=== PATIENT | female | born 2000 | race Caucasian/White ===

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

== ENCOUNTER 2018-01-10 17:26 | Emergency (ER) | payer OTHER ==
[2018-01-10 17:42] VITALS: BP 112/74; PULSE 67; TEMP 98.1; BMI 23.4
--- NOTE | 2018-01-10 17:46 | PDOC ---
History of Present Illness - General Chief Complaint: Revisit,Wound Recheck Stated Complaint: SCALP WOUND CHECK Time Seen by Provider: 01/10/18 17:28 - History of Present Illness Initial Comments: 01/10/18 17:41 17 yo F with h/o Crohn's on azathioprine, presenting with complaint of bald spot in her scalp. Pt states that last month, she suffered a cut in her scalp that subsequently became infected. Pt was evaluated here and started on abx, which she completed. She notes that the wound healed well, but today a large piece of scab fell off her scalp where the wound used to be. Underneath the scab was a bald patch, which prompted pt to come to ER for evaluation. Pt endorses mild pain at the site but denies generalized headaches. Denies F/C. Denies swelling/drainage. Past History - Past Medical History Allergies/Adverse Reactions: Allergies Allergy/AdvReac Type Severity Reaction Status Date / Time No Known Allergies Allergy Verified 01/10/18 17:38 Home Medications: Ambulatory Orders Azathioprine [Imuran] 100 mg PO DAILY 12/18/16 Anemia: Yes COPD: No GI Disorders: Yes (CROHN'S) - Immunization History Immunization Up to Date: Yes - Suicide/Smoking/Psychosocial Hx Smoking Status: No Smoking History: Never smoked Have you smoked in the past 12 months: No Number of Cigarettes Smoked Daily: 0 Hx Alcohol Use: No Drug/Substance Use Hx: No Substance Use Type: None Review of Systems - Review of Systems Comments:: 01/10/18 17:43 GENERAL/CONSTITUTIONAL: No fever or chills. No weakness. HEAD, EYES, EARS, NOSE AND THROAT: No change in vision. No ear pain or discharge. No sore throat. CARDIOVASCULAR: No chest pain, no shortness of breath, no loss of consciousness RESPIRATORY: No cough, wheezing, or hemoptysis. GASTROINTESTINAL: No nausea, vomiting, diarrhea or constipation. GENITOURINARY: No dysuria, frequency, or change in urination. MUSCULOSKELETAL: No joint or muscle swelling or pain. No neck or back pain. SKIN: + bald spot to scalp, No rash NEUROLOGIC: No vertigo, no change in strength/sensation. ENDOCRINE: No increased thirst. No abnormal weight change. HEMATOLOGIC/LYMPHATIC: No anemia, easy bleeding, or history of blood clots. ALLERGIC/IMMUNOLOGIC: No hives or skin allergy. *Physical Exam - Physical Exam Comments: 01/10/18 17:43 "GENERAL: Awake, alert, and fully oriented, in no acute distress. HEAD: No signs of trauma EYES: PERRLA, EOMI, sclera anicteric, conjunctiva clear ENT: Auricles normal inspection, hearing grossly normal, nares patent, oropharynx clear without exudates. Moist mucosa NECK: Nontender, no stepoffs, Normal ROM, supple, no lymphadenopathy, JVD, or masses LUNGS: Breath sounds equal, clear to auscultation bilaterally. No wheezes, and no crackles HEART: Regular rate and rhythm, normal S1 and S2, no murmurs, rubs or gallops ABDOMEN: Soft, nontender, normoactive bowel sounds. No guarding, no rebound. No masses EXTREMITIES: Normal range of motion, no edema. No clubbing or cyanosis. No cords, erythema, or tenderness NEUROLOGICAL: Cranial nerves II through XII intact. 5/5 strength and sensation in all extremities, Normal speech, normal gait, normal cerebellar function SKIN: + 3cm bald patch on occiput, no erythema/induration/fluctuance, no sign of fungal infection Medical Decision Making - Medical Decision Making 01/10/18 17:44 17 yo F presenting to ED with bald patch on scalp. No sign of bacterial or fungal infection. Likely 2/2 recent injury. - Derm f/u Pt is well appearing, with normal vitals. Clinically stable for DC at this time. I discussed the physical exam findings, ancillary test results and final diagnoses with the patient. I answered all of the patient's questions. The patient was satisfied with the care received and felt comfortable with the discharge plan and treatment plan. The patient agrees to follow up with the primary care physician within 24-72 hours. *DC/Admit/Observation/Transfer Diagnosis at time of Disposition: Alopecia - Discharge Dispostion Disposition: HOME Condition at time of disposition: Good - Referrals Referrals: Rahul Gonzales MD [Primary Care Provider] - Sinai Vega MD [Staff Physician] - - Patient Instructions Printed Discharge Instructions: DI Alopecia [place] Additional Instructions: Call the number provided to make an appointment with a rn referral to have your bald spot further evaluated. If you experience any redness, swelling, pain, or any other concerning symptoms , return to the ER immediately. - Post Discharge Activity - Attestations Physician Attestion: 01/10/18 17:47 I, Dr. Naseem Valderrama MD, attest that this document has been prepared under my direction and personally reviewed by me in its entirety. I further attest, that it accurately reflects all work, treatment, procedures and medical decision -making performed by me.
== END 2018-01-10 17:53 | disposition home or self-care (01) ==
LOC: FER 17:26
DX: L65.9 Nonscarring hair loss, unspecified (principal); K50.90 Crohn's disease, unspecified, without complications; D64.9 Anemia, unspecified
CPT/HCPCS: 99281-25

== ENCOUNTER 2018-03-14 09:28 | Emergency (ER) | payer OTHER ==
[2018-03-14 09:43] VITALS: BP 112/70; PULSE 104; TEMP 98.4; BMI 23.4
[2018-03-14] MEDS ORDERED: ONDANSETRON *ODT* 4 MG TABLET SL ONE (10:25)
[2018-03-14] MEDS ORDERED: ONDANSETRON *ODT* 4 MG TABLET ONE (10:27)
--- NOTE | 2018-03-14 10:32 | PDOC ---
History of Present Illness - General Chief Complaint: Nausea/Vomiting Stated Complaint: NAUSEA/VOMITING Time Seen by Provider: 03/14/18 10:19 History Source: Patient Exam Limitations: No Limitations - History of Present Illness Initial Comments: 03/14/18 11:03 17 yr female with c/o nausea and vomiting last 2 days , no vomit today had diarrhea no fever. pt states last loose stool yesterday. PT has history of Past History - Past Medical History Allergies/Adverse Reactions: Allergies Allergy/AdvReac Type Severity Reaction Status Date / Time No Known Allergies Allergy Verified 03/14/18 09:41 Home Medications: Ambulatory Orders Ondansetron [Zofran Odt -] 4 mg SL TID PRN #21 od.tablet 03/14/18 Anemia: Yes COPD: No GI Disorders: Yes (CROHN'S) - Immunization History Immunization Up to Date: Yes - Suicide/Smoking/Psychosocial Hx Smoking Status: No Smoking History: Never smoked Have you smoked in the past 12 months: No Number of Cigarettes Smoked Daily: 0 Hx Alcohol Use: No Drug/Substance Use Hx: No Substance Use Type: None *Physical Exam - Vital Signs Last Vital Signs Temp Pulse Resp BP Pulse Ox 98.4 F 104 H 16 112/70 96 03/14/18 09:41 03/14/18 09:41 03/14/18 09:41 03/14/18 09:41 03/14/18 09:41 - Physical Exam General Appearance: Yes: Nourished, Appropriately Dressed HEENT: positive: EOMI, KRIS Neck: positive: Supple. negative: Tender Respiratory/Chest: positive: Lungs Clear, Normal Breath Sounds Cardiovascular: positive: Regular Rhythm, Regular Rate Gastrointestinal/Abdominal: positive: Normal Bowel Sounds, Soft, Increased Bowel Sounds. negative: Tender Rectal Exam: positive: deferred Musculoskeletal: positive: Normal Inspection Extremity: positive: Normal Capillary Refill, Normal Inspection, Normal Range of Motion Integumentary: positive: Normal Color, Dry, Warm Neurologic: positive: Fully Oriented, Alert, Normal Mood/Affect, Normal Response , Motor Strength 5/5 Moderate Sedation - Procedure Monitoring Vital Signs: Procedure Monitoring Vital Signs Temperature 98.4 F 03/14/18 09:41 Pulse Rate 104 H 03/14/18 09:41 Respiratory Rate 16 03/14/18 09:41 Blood Pressure 112/70 03/14/18 09:41 O2 Sat by Pulse Oximetry (%) 96 03/14/18 09:41 ED Treatment Course - Medications Given in the ED: ED Medications Discontinued Medications Generic Name Dose Route Start Last Admin Trade Name Darrin PRN Reason Stop Dose Admin Ondansetron HCl 4 mg 03/14/18 10:25 03/14/18 10:27 Zofran Odt - SL 03/14/18 10:26 4 mg ONCE ONE Administration Medical Decision Making - Medical Decision Making 03/14/18 11:22 cc: new years day started with nausea vomiting after drinking champagne the night before pt had diarrhea, last stool yesterday pt presents to ER missed work today due to continuing to feel nausea no vomiting today will check urine UA zofran for nausea *DC/Admit/Observation/Transfer Diagnosis at time of Disposition: Gastroenteritis - Discharge Dispostion Disposition: HOME Condition at time of disposition: Good - Prescriptions Prescriptions: Ondansetron [Zofran Odt -] 4 mg SL TID PRN #21 od.tablet PRN Reason: Nausea And/Or Vomiting - Referrals Referrals: Rahul Gonzales MD [Primary Care Provider] - - Patient Instructions Printed Discharge Instructions: DI for Nausea -- Adult Additional Instructions: small sips of clear fluids ice pops, jello , gatorade gingerale as you can tolerate the fluids take small bites of dry cereal, dry crackers dry toast take zofran for nausea or vomiting as directed follow with your doctor if any worsening symptoms return to ER for any fever, bloody diarrhea, unable to tolerate fluids - Post Discharge Activity Forms/Work/School Notes: Back to Work
[2018-03-14 10:51] LABS: HCG,QUALITATIVE URINE Negative
[2018-03-14 10:59] LABS: URINE APPEARANCE CLEAR; URINE BILIRUBIN NEGATIVE (<2.0 mg/dL); URINE COLOR YELLOW; URINE GLUCOSE (UA) NEGATIVE (NEGATIVE); URINE KETONE NEGATIVE (NEGATIVE); URINE LEUK ESTERASE 1+ (NEGATIVE); URINE NITRITE NEGATIVE (NEGATIVE); URINE PROTEIN 1+ (NEGATIVE); URINE UROBILINOGEN NEGATIVE mg/dL (0.2-1.0)
[2018-03-14 11:01] LABS: EPI CELLS RARE /HPF (FEW); URINE MUCUS FEW
== END 2018-03-14 11:30 | disposition home or self-care (01) ==
LOC: JERFT 09:28
DX: K52.9 Noninfective gastroenteritis and colitis, unspecified (principal)
CPT/HCPCS: 81003; 81015; 84703; 87086; 87186; 99281-25; Q0162

== ENCOUNTER 2018-05-22 17:43 | Emergency (ER) | payer SELFPAY ==
--- NOTE | 2018-05-22 17:48 | PDOC ---
Attending Attestation - HPI HPI: 05/22/18 18:16 Patient is a 17 year old female with significant past medical history of Crohn' s (on a biologic), who presents to the ED with, 3-4 days of a sore throat. Patient describes her pain as bilateral worsening with swallowing. 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 NKDA - Physicial Exam PE: 05/22/18 18:39 GENERAL: Well developed, well nourished. Awake and alert. No acute distress. HEENT: +Nasal congestion. Mildly injected throat. Normocephalic, atraumatic. PERRLA, EOMI. No conjunctival pallor. Sclera are non-icteric. NECK: +Shotty cervical lymphadenopathy. Supple. Full ROM. No JVD. Carotid pulses 2+ and symmetric, without bruits. No thyromegaly. CARDIOVASCULAR: Regular rate and rhythm. No murmurs, rubs, or gallops. Distal pulses are 2+ and symmetric. PULMONARY: No evidence of respiratory distress. Lungs clear to auscultation bilaterally. No wheezing, rales or rhonchi. ABDOMINAL: Soft. Non-tender. Non-distended. No rebound or guarding. No organomegaly. Normoactive bowel sounds. MUSCULOSKELETAL Normal range of motion at all joints. No bony deformities or tenderness. No CVA tenderness. EXTREMITIES: No cyanosis. No clubbing. No edema. No calf tenderness. SKIN: Warm and dry. Normal capillary refill. No rashes. No jaundice. NEUROLOGICAL: Alert, awake, appropriate. Cranial nerves 2-12 intact. No deficits to light touch and temperature in face, upper extremities and lower extremities. No motor deficits in the in face, upper extremities and lower extremities. Normoreflexic in the upper and lower extremities. Normal speech. Toes are down- going bilaterally. Gait is normal without ataxia. PSYCHIATRIC: Cooperative. Good eye contact. Appropriate mood and affect. <Tulio Carrasquillo - Last Filed: 05/22/18 18:37> - Resident Resident Name: Kalia Rich - ED Attending Attestation I have performed the following: I have examined & evaluated the patient, The case was reviewed & discussed with the resident, I agree w/resident's findings & plan, Exceptions are as noted - Medical Decision Making 05/22/18 18:44 Assessment: Mild viral URI, rule out strep Plan: Throat culture and further medical management, antibiotics if positive, symptomatic treatment if negative. Patient is without fever or other systemic manifestations of significant infection. She is on azathioprine for her ulcerative colitis but no biologics past or present. <Tod Schaffer - Last Filed: 05/22/18 18:45> Attestations - Attestations 05/22/18 18:23 Documentation prepared by Tulio Carrasquillo, acting as expert medical writer for Tod Bonner MD. <Tulio Carrasquillo - Last Filed: 05/22/18 18:37>
[2018-05-22 17:52] VITALS: BP 116/79; PULSE 73; TEMP 97.9; BMI 23.4
--- NOTE | 2018-05-22 17:52 | PDOC ---
History of Present Illness - General Chief Complaint: Sore Throat Stated Complaint: SORE THROAT Time Seen by Provider: 05/22/18 17:47 History Source: Patient, Parent(s) (Father present at bedside), Old Records Exam Limitations: No Limitations - History of Present Illness Initial Comments: HPI: 17 y/o female presenting to ER complaining of 3-4 days of sore throat, cough , and nasal congestion. Pt states the pain was initially on the right side of her throat and is now bilaterally. Pain is worse with swallowing. Endorses possible right ear pain. Has trialed PO Tylenol with some relief. Denies fevers , sweats, or body aches. Did not seek care at per PCP. 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 No recent change in the dose. Past History - Past Medical History Allergies/Adverse Reactions: Allergies Allergy/AdvReac Type Severity Reaction Status Date / Time No Known Allergies Allergy Verified 05/22/18 17:45 Home Medications: Ambulatory Orders Azathioprine [Azasan] 75 mg PO DAILY 05/22/18 Anemia: Yes COPD: No GI Disorders: Yes (CROHN'S) - Immunization History Immunization Up to Date: Yes - Suicide/Smoking/Psychosocial Hx Smoking Status: No Smoking History: Never smoked Have you smoked in the past 12 months: No Number of Cigarettes Smoked Daily: 0 Information on smoking cessation initiated: No Hx Alcohol Use: No Drug/Substance Use Hx: No Substance Use Type: None Review of Systems - Review of Systems Able to Perform ROS?: Yes Comments:: In addition to that documented in the HPI above, the additional ROS was obtained : Constitutional: Denies fevers or chills Head: Denies vision changes ENMT: Per HPI CV: Denies chest pain Resp: Denies SOB GI: Denies vomiting or diarrhea : Denies painful urination MSK: Denies recent trauma Skin: Denies new rashes Neuro: Denies new numbness or tingling or weakness Endocrine: Denies polyuria Heme: Denies bleeding or bruising *Physical Exam - Vital Signs Last Vital Signs Temp Pulse Resp BP Pulse Ox 97.9 F 73 20 116/79 100 05/22/18 17:43 05/22/18 17:43 05/22/18 17:43 05/22/18 17:43 05/22/18 17:43 - Physical Exam Comments: Constitutional: Well-developed, well-nourished, non-toxic, very well appearing adult female in no acute distress or obvious discomfort. Found sitting upright on edge of hospital bed. Alert and oriented x4. Answered all questions appropriately and completely. Speech was non-labored, non-pressured. Head: Normocephalic. No obvious external signs of trauma. Eyes: Sclerae white. Ears: External auditory canals and tympanic membranes pearly hudson. Hearing grossly intact. Nose: No nasal discharge. Throat: Mild erythema to posterior oropharynx without tonsillar hypertrophy or exudate. Teeth and gingiva in good general condition. Neck: Supple, trachea is midline. Bilateral cervical lymphadenopathy. Cardiovascular / Chest: Regular rate and regular rhythm. No murmur, rubs, clicks, or gallops. Peripheral pulses: radial pulses full. Respiratory: Breathing unlabored. Equal chest rise and fall. Clear to auscultation bilaterally. No stridor, no wheezing, no rhonchi. Gastrointestinal: abdomen is soft, non-tender, non-distended. Neuro: Alert and oriented. Moving all four extremities spontaneously. Skin: Warm, dry, and intact. Psych: Affect: appropriate. Mood: normal. Moderate Sedation - Procedure Monitoring Vital Signs: Procedure Monitoring Vital Signs Temperature 97.9 F 05/22/18 17:43 Pulse Rate 73 05/22/18 17:43 Respiratory Rate 20 05/22/18 17:43 Blood Pressure 116/79 05/22/18 17:43 O2 Sat by Pulse Oximetry (%) 100 05/22/18 17:43 Medical Decision Making - Medical Decision Making Centor Score (Modified/McIsaac) for Strep Pharyngitis RESULT SUMMARY: 1 points 5% - 10% likelihood of strep No further testing nor antibiotics. INPUTS: Age > 0 = 15-44 years Exudate or swelling on tonsils > 0 = No Tender/swollen anterior cervical lymph nodes > 1 = Yes Temp >38C (100.4F) > 0 = No Cough > 0 = Cough present *Reviewed vital signs, nursing notes, and prior visit documentation (if available). 17 y/o female complaining of sore throat and viral URI type symptoms for the past 3-4 days. Afebrile. Vitals unremarkable for hypotension or tachycardia. Physical exam as described above. Very well appearing. Suspect likely viral URI versus viral pharyngitis. Low suspicion for strep throat or esophageal Crohn's flare. Will obtain rapid strep test. Rapid strep test negative. Throat culture pending. Will not prescribe antibiotics at this time. Call back request placed for throat culture. Provided referral for [facility] to establish primary care given pts multiple ED visits for low acuity complaints. *DC/Admit/Observation/Transfer Diagnosis at time of Disposition: Sore throat - Discharge Dispostion Disposition: HOME Condition at time of disposition: Good Decision to Admit order: No - Referrals Schedule a call back: Throat Culture Referrals: [facility] [place] [Provider Group] - Patient Instructions Printed Discharge Instructions: DI for Viral Pharyngitis Additional Instructions: Your rapid strep test was negative. A throat culture has been done; the results will be available in 48 hours. You will be contacted if the culture is positive for strep throat and an antibiotic will be phoned in for you. You can take over the counter Tylenol or Advil as needed for pain. Take as directed on the package insert. Do not exceed the recommended dosage. You may also gargle with salt water for the sore throat. Follow up with your primary care doctor within the next week. You will need to call to make an appointment. Go to the nearest emergency department if your condition worsens or you feel like you need additional emergency evaluation. Print Language: SOMALI - Post Discharge Activity
== END 2018-05-22 19:06 | disposition home or self-care (01) ==
LOC: FER 17:43
DX: J02.9 Acute pharyngitis, unspecified (principal)
CPT/HCPCS: 87070; 87880; 99282-25

== ENCOUNTER 2018-06-28 17:47 | Emergency (ER) | payer SELFPAY ==
[2018-06-28 18:09] VITALS: BP 104/73; PULSE 94; TEMP 98.5; BMI 23.4
--- NOTE | 2018-06-28 18:20 | PDOC ---
Documentation entered by Tulio Carrasquillo SCRIBE, acting as scribe for Alfred Sanches MD. Alfred Sanches MD: This documentation has been prepared by the Neida barfield Nirvannie, SCRIBE, under my direction and personally reviewed by me in its entirety. I confirm that the documentation accurately reflects all work, treatment, procedures, and medical decision making performed by me. History of Present Illness - General Chief Complaint: Urinary Problem Stated Complaint: UTI, STD CHECK, NECK & L KNEE INJURY Time Seen by Provider: 06/28/18 18:01 History Source: Patient Exam Limitations: No Limitations - History of Present Illness Initial Comments: 06/28/18 18:47 CC: Vaginal irritation, posterior neck and left knee pain HPI: The patient is a 17 year old female, with a significant past medical history of Crohns and frequent UTIs, who presents to the emergency department with, 10 days of vaginal irritation. As per patient, she used a new soap and subsequently began experiencing discomfort and vaginal irritation. Patient is sexually active with intermittent usage of protection. 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 She endorses mild right cervical paraspinal pain and left knee pain with abrasions, She denies any vaginal bleeding or abnormal vaginal discharge. She denies recent fevers, chills, headache or dizziness. She denies recent nausea, vomit, diarrhea or constipation. She denies recent dysuria, frequency, urgency or hematuria. She denies recent chest pain or shortness of breath. Allergies: NKA Past surgical history: None reported. Social history: Nonsmoker. Denies EtOH use and recreational drug use. Past History - Past Medical History Allergies/Adverse Reactions: Allergies Allergy/AdvReac Type Severity Reaction Status Date / Time No Known Allergies Allergy Verified 06/28/18 18:00 Home Medications: Ambulatory Orders Azathioprine [Azasan] 75 mg PO DAILY 05/22/18 Anemia: Yes COPD: No GI Disorders: Yes (CROHN'S) - Reproductive History Is Patient Now?: No - Immunization History Immunization Up to Date: Yes - Suicide/Smoking/Psychosocial Hx Smoking Status: No Smoking History: Never smoked Have you smoked in the past 12 months: No Number of Cigarettes Smoked Daily: 0 Hx Alcohol Use: No Drug/Substance Use Hx: No Substance Use Type: None Review of Systems - Review of Systems Able to Perform ROS?: Yes Comments:: 06/28/18 18:47 ROS: A complete review of 10 out of 10 review of systems is taken and is negative apart from what is previously mentioned below and in the HPI. *Physical Exam - Vital Signs Last Vital Signs Temp Pulse Resp BP Pulse Ox 98.5 F 94 H 16 104/73 98 06/28/18 17:48 06/28/18 17:48 06/28/18 17:48 06/28/18 17:48 06/28/18 17:48 - Physical Exam Comments: 06/28/18 18:47 Exam: Vitals: Triage Vital signs reviewed General Appearance: no acute distress, well nourished well developed, Head: Atraumatic, normocephalic Neck: +Mild right paraspinal tenderness. Supple Abdomen: Soft, nondistended, normal bowel sounds, nontender to palpation Rectal: Exam deferred Pelvic: Thick cottage-cheese like discharge Extremities: +LLE: Mild tenderness to the left knee with small abrasion. Full range of motion to all extremities, no cyanosis, clubbing, or edema Skin: Warm and dry, no rashes or lesions, no petechiae Neuro: AOX3; Cranial Nerves 2-12 grossly intact, Strength intact to all extremities, Sensation intact to all extremities Psych: normal mood, normal affect Medical Decision Making - Medical Decision Making 06/28/18 18:48 17 year old female, with a significant past medical history of Crohns and frequent UTIs, who presents to the emergency department with, 10 days of vaginal irritation. Plan is to: Pelvic exam UA/UPREG GC/Chlamydia testing HIV testing Reassess Dispo 06/28/18 18:55 Patient presents ED with 2 complaints. Has history of Crohn's disease frequent UTIs is on immunosuppressive medication presents with ten-day history of vaginal irritation and itching Second complaint we'll pushing a cart cart tipped over resulting in minor muscular skeletal injury to right paraspinal neck and abrasion to left knee No indication for imaging patient able to ambulate comfortably no bony tenderness Patient also requesting HIV testing Pelvic examination notable for vaginal discharge consistent with heidi infection patient ordered for fluconazole and Monistat Final urinalysis and HIV pending Dr. Maegan Fuentes to follow-up results and dispo *DC/Admit/Observation/Transfer Diagnosis at time of Disposition: Dysuria - Discharge Dispostion Condition at time of disposition: Good - Referrals - Patient Instructions - Post Discharge Activity
[2018-06-28] MEDS ORDERED: FLUCONAZOLE 150 MG TABLET PO ONE ×2 (18:53→19:18)
[2018-06-28] MEDS ORDERED: MICONAZOLE NITRATE 2% VAGINAL CREAM 45 GM TUBE VG ONE (18:53)
[2018-06-28 19:04] LABS: EPITHELIAL CELLS FEW /hpf
--- NOTE | 2018-06-28 19:27 | PDOC ---
*Physical Exam - Vital Signs Last Vital Signs Temp Pulse Resp BP Pulse Ox 98.5 F 94 H 16 104/73 98 06/28/18 17:48 06/28/18 17:48 06/28/18 17:48 06/28/18 17:48 06/28/18 17:48 ED Treatment Course - ADDITIONAL ORDERS Additional order review: Laboratory Results 06/28/18 06/28/18 18:30 18:30 Urine Color Yellow Urine Appearance Clear Urine pH 7.0 Urine Protein 1+ H Urine Glucose (UA) Negative Urine Ketones Trace Urine Blood Trace-lysed Urine Nitrite Negative Urine Bilirubin Negative Urine Urobilinogen 0.2 Ur Leukocyte Esterase 3+ Urine RBC 0-2 Urine WBC 5-10 Ur Transition Epith Cell Few Urine Bacteria Few Urine HCG, Qual Negative - Medications Given in the ED: ED Medications Discontinued Medications Generic Name Dose Route Start Last Admin Trade Name Freq PRN Reason Stop Dose Admin Fluconazole 150 mg 06/28/18 18:53 06/28/18 19:20 Fluconazole PO 06/28/18 18:54 150 mg ONCE ONE Administration Miconazole Nitrate 1 applic 06/28/18 18:53 06/28/18 19:22 Monistat-7 Vaginal Cream - VG 06/28/18 18:54 Not Given ONCE ONE Progress Note - Progress Note Progress Note: Care of this patient was transferred to me from Dr. Sanches at 1900 hrs. Patient is a 17-year-old female with vaginal itching and discharge. Patient's pelvic exam was consistent with a yeast infection. Patient given fluconazole here and I will send a prescription for Monistat to her pharmacy times one dose only Patient had HIV testing which is not back patient will be called if result is negative otherwise patient is aware she may need to come back into the ED to receive a positive test result *DC/Admit/Observation/Transfer Diagnosis at time of Disposition: Dysuria, Vaginal yeast infection - Discharge Dispostion Disposition: HOME Condition at time of disposition: Good Decision to Admit order: No - Referrals - Patient Instructions Additional Instructions: You were given a pill here for a vaginal yeast infection, I also sent a prescription to your pharmacy for a one-time dose of Monistat get the prescription filled and take as directed vaginally. We will call you with the result of your H ITT test if the test is anything but negative E will be requested to come back to the ED to obtain the results. Return to the emergency department immediately with ANY new, persistent or worsening symptoms. Continue any medications as previously prescribed by your physician. You should follow up with your primary doctor as soon as possible regarding today's emergency department visit. . Please make sure your doctor reviews the results of your emergency evaluation. Thank you for coming to the Emergency Department today for your care. It was a pleasure to see you today. Please note that your evaluation is INCOMPLETE until you follow-up with your doctor. - Post Discharge Activity
== END 2018-06-28 19:30 | disposition home or self-care (01) ==
LOC: FER 17:47
CPT/HCPCS: 36415; 81003; 81015; 84703; 87086; 87389; 87491; 87591; 87661; 99283-25

== ENCOUNTER 2018-07-24 18:41 | Emergency (ER) | payer OTHER | END 2018-07-24 21:01 | disposition home or self-care (01) | LOC: JERFT 18:41 ==

== ENCOUNTER 2018-08-05 15:45 | Emergency (ER) | payer SELFPAY, OTHER | END 2018-08-05 16:46 | disposition home or self-care (01) | LOC: FER 15:45 ==

== ENCOUNTER 2018-08-11 17:58 | Emergency (ER) | payer OTHER ==
[2018-08-11 18:11] VITALS: BP 110/77; PULSE 70; TEMP 98.3; BMI 22.4
--- NOTE | 2018-08-11 18:41 | PDOC ---
Documentation entered by Rhys Moran SCRIBE, acting as scribe for Tod Schaffer MD. Tod Schaffer MD: This documentation has been prepared by the Luisa barfield Andrys, SCRIBE, under my direction and personally reviewed by me in its entirety. I confirm that the documentation accurately reflects all work, treatment, procedures, and medical decision making performed by me. Suture Removal/Wound Check HPI - History of Present Illness Chief Complaint: Suture/Staple Removal(Here) Stated Complaint: SUTURE REMOVAL History Source: Yes: Patient Exam Limitations: Yes: No Limitations - Onset of Previous Treatment Comment:: 08/11/18 18:25 2 cm laceration right lower leg, healed. No sign of infection. Clean and dry. Sutures removed. Bacitracin and Steri-Strips 2-3 more days. Follow-up when necessary. 08/11/18 18:29 The patient is a 17 year old female with a significant past medical history of Crohns disease who presents to the ED for suture removal. Patient was last seen in the ED on 08/05 for a right lower extremity laceration s/p injury. Patient received 5 sutures. Denies any other symptoms. Past History - Past Medical History Allergies/Adverse Reactions: Allergies Allergy/AdvReac Type Severity Reaction Status Date / Time No Known Allergies Allergy Verified 08/11/18 18:04 Home Medications: Ambulatory Orders Azathioprine [Azasan] 100 mg PO DAILY 05/22/18 Anemia: Yes COPD: No GI Disorders: Yes (CROHN'S) - Immunization History Immunization Up to Date: Yes - Suicide/Smoking/Psychosocial Hx Smoking Status: No Smoking History: Never smoked Have you smoked in the past 12 months: No Number of Cigarettes Smoked Daily: 0 Hx Alcohol Use: No Drug/Substance Use Hx: No Substance Use Type: None *Review of Systems - Review of Systems Able to Perform ROS?: Yes Comments:: 08/11/18 18:29 CONSTITUTIONAL: Absent: fever, no chills, no fatigue EYES: Absent: visual changes ENT: Absent: ear pain, no sore throat CARDIOVASCULAR: Absent: chest pain, no palpitations RESPIRATORY: Absent: cough, no SOB GI: Absent: abdominal pain, no nausea, no vomiting, no constipation, no diarrhea GENITOURINARY: Absent: dysuria, no frequency, no hematuria MUSKULOSKELETAL: Absent: back pain, no arthralgia, no myalgia SKIN: + sutures in place Absent: rash NEURO: Absent: headache All Other Systems: Reviewed and Negative *Physical Exam - Vital Signs Last Vital Signs Temp Pulse Resp BP Pulse Ox 98.3 F 70 15 110/77 96 08/11/18 17:59 08/11/18 17:59 08/11/18 17:59 08/11/18 17:59 08/11/18 17:59 - Physical Exam Comments: 08/11/18 18:29 GENERAL: Well-appearing, well-nourished. No apparent distress. HEENT: Normocephalic, atraumatic. PERRL, EOM intact. CARDIOVASCULAR: Normal S1, S2. Regular rate and rhythm. PULMONARY: Clear to auscultation bilaterally. ABDOMEN: Soft, non-distended, non-tender. EXTREMITIES: Normal ROM in all four extremities. No gross deformities. SKIN: + 2 cm laceration, clean and dry in the Right lower leg. Healed well, no sign of infection. Sutures removed, steri strips applied. Follow up if there is bleeding or sign of infection NEUROLOGICAL: No focal neurological deficits. *DC/Admit/Observation/Transfer Diagnosis at time of Disposition: Visit for suture removal - Discharge Dispostion Disposition: HOME Condition at time of disposition: Improved Decision to Admit order: No - Referrals Referrals: Rahul Gonzales MD [Primary Care Provider] - - Patient Instructions Printed Discharge Instructions: DI for Suture Removal - Post Discharge Activity
== END 2018-08-11 18:31 | disposition home or self-care (01) ==
LOC: FER 17:58
DX: Z48.02 Encounter for removal of sutures (principal)
CPT/HCPCS: 99281-25

== ENCOUNTER 2018-09-14 13:35 | Emergency (ER) | payer OTHER ==
[2018-09-14 13:52] VITALS: BP 108/71; PULSE 96; TEMP 98.5; BMI 22.2
--- NOTE | 2018-09-14 14:22 | PDOC ---
*Physical Exam - Vital Signs Last Vital Signs Temp Pulse Resp BP Pulse Ox 98.5 F 96 H 18 108/71 99 09/14/18 13:47 09/14/18 13:47 09/14/18 13:47 09/14/18 13:47 09/14/18 13:47 Medical Decision Making - Medical Decision Making 09/14/18 14:21 Pt seen by Midlevel Provider under my direct supervision Ancillary studies reviewed I agree with plan as outlined by Midlevel Provider 09/14/18 16:06 *DC/Admit/Observation/Transfer Diagnosis at time of Disposition: Vaginal discharge, Nausea - Discharge Dispostion Disposition: HOME Condition at time of disposition: Stable - Prescriptions Prescriptions: metroNIDAZOLE [Flagyl -] 500 mg PO DAILY #14 tablet Nitrofurantoin Monohyd/M-Cryst [Macrobid] 100 mg PO BID #14 capsule Ondansetron [Zofran Odt -] 4 mg SL TID PRN #21 od.tablet PRN Reason: Nausea - Referrals Schedule a call back: Call back Referrals: Rahul Gonzales MD [Primary Care Provider] - - Patient Instructions Printed Discharge Instructions: DI for Vaginal Discharge Additional Instructions: Take metronidazole as prescribed for suspected bacterial vaginosis and Macrobid as prescribed for UTI Use Zofran if needed for nausea Follow-up with your attending urologist as soon as possible for further evaluation of discharge Return here for abdominal pain, vomiting/inability to keep down fluids, fever, or any other concerning symptoms - Post Discharge Activity
--- NOTE | 2018-09-14 14:24 | PDOC ---
History of Present Illness - General Chief Complaint: Nausea/Vomiting Stated Complaint: NAUSEA/VOMITING Time Seen by Provider: 09/14/18 14:20 History Source: Patient Exam Limitations: No Limitations - History of Present Illness Initial Comments: 09/14/18 15:02 CHIEF COMPLAINT: Nausea HISTORY OF PRESENT ILLNESS: This is a 17-year-old female with a history of Crohn 's disease on azathioprine who presents complaining of 3 days of nausea with an episode of vomiting today. She also has 4-5 episodes of nonbloody diarrhea daily , although this is typical for her. She also reports 4 months of thick, white, non-malodorous vaginal discharge, which she reports has been treated twice with Diflucan without any improvement in symptoms. She denies abdominal pain, fevers/ chills, or any other symptoms. Patient is sexually active with male partners, but reports that she has not had sex for several months. Vital signs on arrival are notable for heart rate of 96. REVIEW OF SYSTEMS: GENERAL/CONSTITUTIONAL: No fever or chills. No weakness. No weight change. CARDIOVASCULAR: No chest pain or palpitations. RESPIRATORY: No cough, wheezing, or shortness of breath. GASTROINTESTINAL: Nausea/vomiting, chronic diarrhea. No abdominal pain. GENITOURINARY: 4 months of vaginal discharge. No dysuria, frequency, or change in urination. MUSCULOSKELETAL: No joint or muscle swelling or pain. No neck or back pain. SKIN: No rash or easy bruising. NEUROLOGIC: No headache, vertigo, loss of consciousness, or loss of sensation. PSYCHIATRIC: No depression or anxiety. ENDOCRINE: No increased thirst. No abnormal weight change. HEMATOLOGIC/LYMPHATIC: No anemia, easy bleeding, or history of blood clots. ALLERGIC/IMMUNOLOGIC: No hives or skin allergy. No latex allergy. PHYSICAL EXAM: GENERAL: The patient is awake, alert, and fully oriented, in no acute distress. HEAD: Normal with no signs of trauma. ENT: Pupils equal, round and reactive to light, extraocular movements intact, sclera anicteric, conjunctiva clear. Neck supple. LUNGS: Clear to auscultation bilaterally. Normal excursion. No respiratory distress or use of accessory muscles. CV: RRR, S1/S2, no MRG. Cap refill < 2 sec. ABDOMEN: Soft, non-distended, non-tender even to deep palpation. EXTREMITIES: Normal range of motion, no edema. NEUROLOGICAL: Normal speech, normal gait. CN II-XII grossly intact. PSYCH: Normal mood, normal affect. SKIN: Warm, dry, normal turgor, no rashes or lesions noted. CHIEF LIBRARIAN EXTENSION DEPARTMENT: Normal external exam. Thin grayish vaginal discharge. No CMT or adnexal tenderness. Past History - Past Medical History Allergies/Adverse Reactions: Allergies Allergy/AdvReac Type Severity Reaction Status Date / Time No Known Allergies Allergy Verified 09/14/18 13:52 Home Medications: Ambulatory Orders Azathioprine [Azasan] 100 mg PO DAILY 05/22/18 Nitrofurantoin Monohyd/M-Cryst [Macrobid] 100 mg PO BID #14 capsule 09/14/18 Ondansetron [Zofran Odt -] 4 mg SL TID PRN #21 od.tablet 09/14/18 metroNIDAZOLE [Flagyl -] 500 mg PO DAILY #14 tablet 09/14/18 Anemia: Yes COPD: No GI Disorders: Yes (CROHN'S) - Immunization History Immunization Up to Date: Yes - Suicide/Smoking/Psychosocial Hx Smoking Status: No Smoking History: Never smoked Have you smoked in the past 12 months: No Number of Cigarettes Smoked Daily: 0 Hx Alcohol Use: No Drug/Substance Use Hx: No Substance Use Type: None *Physical Exam - Vital Signs Last Vital Signs Temp Pulse Resp BP Pulse Ox 98.5 F 96 H 18 108/71 99 09/14/18 13:47 09/14/18 13:47 09/14/18 13:47 09/14/18 13:47 09/14/18 13:47 Medical Decision Making - Medical Decision Making 09/14/18 15:38 A/P: 17-year-old female with nausea/vomiting without abdominal tenderness on exam. Asymptomatic currently in declining antiemetics. Also with diarrhea that is chronic and unchanged. Reporting 4 months of vaginal discharge unresponsive to 2 rounds of antifungal treatment; no evidence of PID on exam. -Basic labs: CBC, CMP. -UA/urine culture -Gen. culture -Chlamydia/gonorrhea Suspect bacterial vaginosis; will treat with Flagyl. UA with 1+ leukoesterase; will treat with Macrobid. Patient states she is feeling fine and does not want to wait for lab results. Follow-up instructions and return precautions reviewed. *DC/Admit/Observation/Transfer Diagnosis at time of Disposition: Vaginal discharge, Nausea - Discharge Dispostion Disposition: HOME Condition at time of disposition: Stable Decision to Admit order: No - Prescriptions Prescriptions: metroNIDAZOLE [Flagyl -] 500 mg PO DAILY #14 tablet Nitrofurantoin Monohyd/M-Cryst [Macrobid] 100 mg PO BID #14 capsule Ondansetron [Zofran Odt -] 4 mg SL TID PRN #21 od.tablet PRN Reason: Nausea - Referrals Schedule a call back: Call back Referrals: Rahul Gonzales MD [Primary Care Provider] - - Patient Instructions Printed Discharge Instructions: DI for Vaginal Discharge Additional Instructions: Take metronidazole as prescribed for suspected bacterial vaginosis and Macrobid as prescribed for UTI Use Zofran if needed for nausea Follow-up with your assistant refinery operator as soon as possible for further evaluation of discharge Return here for abdominal pain, vomiting/inability to keep down fluids, fever, or any other concerning symptoms - Post Discharge Activity
[2018-09-14 15:16] LABS: EPI CELLS 4.7 /HPF (0-5/HPF); HYALINE CASTS 3 /lpf (0-8); URINE APPEARANCE CLEAR; URINE BACTERIA 177.2 /hpf (NEGATIVE); URINE BILIRUBIN NEGATIVE (NEGATIVE); URINE COLOR YELLOW; URINE GLUCOSE (UA) NEGATIVE (NEGATIVE); URINE KETONE NEGATIVE (NEGATIVE); URINE LEUK ESTERASE 1+ (NEGATIVE); URINE NITRITE NEGATIVE (NEGATIVE); URINE PROTEIN NEGATIVE (NEGATIVE); URINE RBC 2 /hpf (0-4); URINE UROBILINOGEN 0.2 mg/dL (0.2-1.0); URINE WBC 8 /hpf (0-5)
[2018-09-14 16:25] LABS: BASO % 0.3 % (0-2.0); EOS % 0.2 % (0-4.5); HEMATOCRIT 39.6 % (32.4-45.2); HEMOGLOBIN 13.2 GM/dL (10.7-15.3); LYMPH % 10.6 % (8-40); MCH 29.9 pg (25.7-33.7); MCHC 33.3 g/dl (32.0-36.0); MEAN CELL VOLUME 89.9 fl (80-96); MEAN PLT VOLUME 7.7 fl (7.5-11.1); MONO % 11.2 % (3.8-10.2); NEUT % 77.7 % (42.8-82.8); PLATELET COUNT 284 K/MM3 (134-434); RDW 15.5 % (11.6-15.6); WHITE BLOOD COUNT 7.2 K/mm3 (4.0-10.0)
[2018-09-14 16:50] LABS: ALBUMIN 4.1 g/dl (3.4-5.0); BILIRUBIN,TOTAL 1.1 mg/dL (0.2-1); BLOOD UREA NITROGEN 6.9 mg/dL (7-18); CREATININE 0.9 mg/dL (0.55-1.3); POTASSIUM 3.8 mmol/L (3.5-5.1); TOT PROT 7.8 g/dl (6.4-8.2)
== END 2018-09-14 16:00 | disposition home or self-care (01) ==
LOC: JER 13:35
DX: N39.0 Urinary tract infection, site not specified (principal); N76.0 Acute vaginitis; B96.89 Other specified bacterial agents as the cause of diseases classified elsewhere
CPT/HCPCS: 36415; 80053; 81003; 84703; 85025; 87070; 87077; 87086; 87205; 87389; 87491; 87591; 99281-25

== ENCOUNTER 2019-03-02 18:20 | Emergency (ER) | payer OTHER ==
--- NOTE | 2019-03-02 18:53 | PDOC ---
Documentation entered by Evangelina Chávez SCRIBE, acting as scribe for Dexter Blackman MD. Dexter Blackman MD: This documentation has been prepared by the yesikaeKyler Aiswarya, SCRIBE, under my direction and personally reviewed by me in its entirety. I confirm that the documentation accurately reflects all work, treatment, procedures, and medical decision making performed by me. History of Present Illness - General Chief Complaint: Pain Stated Complaint: LEFT ELBOW PAIN Time Seen by Provider: 03/02/19 18:22 History Source: Patient Exam Limitations: No Limitations - History of Present Illness Initial Comments: 03/02/19 18:37 The patient is a 18 year old female, with a significant PMH of anemia and crohns , who presents to the emergency department with left elbow pain that began yesterday. Patient states she was play fighting with one of her friends when she hit her left elbow on the wall. She notes pain on palpation to the left elbow and wrist. Denies any numbness or tingling. Denies any contusions, bleeding or abrasion. Denies any pain with flexion and extension. Allergies: NKDA Past surgical history: None reported Social history: None reported PCP: None reported Past History - Past Medical History Allergies/Adverse Reactions: Allergies Allergy/AdvReac Type Severity Reaction Status Date / Time No Known Allergies Allergy Verified 09/14/18 13:52 Home Medications: Ambulatory Orders Azathioprine [Azasan] 100 mg PO DAILY 05/22/18 Nitrofurantoin Monohyd/M-Cryst [Macrobid] 100 mg PO BID #14 capsule 09/14/18 Ondansetron [Zofran Odt -] 4 mg SL TID PRN #21 od.tablet 09/14/18 metroNIDAZOLE [Flagyl -] 500 mg PO DAILY #14 tablet 09/14/18 Anemia: Yes COPD: No GI Disorders: Yes (CROHN'S) - Immunization History Immunization Up to Date: Yes - Psycho Social/Smoking Cessation Hx Smoking Status: No Smoking History: Never smoked Have you smoked in the past 12 months: No Number of Cigarettes Smoked Daily: 0 Hx Alcohol Use: No Drug/Substance Use Hx: No Substance Use Type: None Review of Systems - Review of Systems Able to Perform ROS?: Yes Comments:: 03/02/19 18:37 GENERAL/CONSTITUTIONAL: No fever or chills. No weakness. HEAD, EYES, EARS, NOSE AND THROAT: No change in vision. No ear pain or discharge. No sore throat. MUSCULOSKELETAL: +left elbow pain. SKIN: No rash NEUROLOGIC: No headache, vertigo, loss of consciousness, or change in strength/ sensation. ENDOCRINE: No increased thirst. No abnormal weight change. HEMATOLOGIC/LYMPHATIC: No anemia, easy bleeding, or history of blood clots. ALLERGIC/IMMUNOLOGIC: No hives or skin allergy. *Physical Exam - Physical Exam 03/02/19 18:38 GENERAL: Awake, alert, and fully oriented, in no acute distress HEAD: No signs of trauma EXTREMITIES:Full ROM. Normal range of motion, no edema. No clubbing or cyanosis. No cords, swelling, erythema, or tenderness NEUROLOGICAL:. Normal speech. SKIN: Warm, Dry, normal turgor, no rashes or lesions noted. Gastrointestinal/Abdominal: positive: Normal Bowel Sounds, Flat, Soft. negative : Tender, Organomegaly, Pulsatile Mass ED Treatment Course - RADIOLOGY Radiology Studies Ordered: Category Date Time Status ELBOW-LEFT [RAD] Stat Radiology 03/02/19 18:25 Taken ED Progress Note - Progress Note Progress Note: 03/02/19 18:51 Patient has full ROM of left elbow with no swelling or ecchymosis X ray left elbow: no fracture seen Ice, Tylenol, rest If worsen return to ER Discharge - Discharge Information Problems reviewed: Yes Clinical Impression/Diagnosis: Elbow contusion Qualifiers: Encounter type: initial encounter Laterality: left Qualified Code(s): S50.02XA - Contusion of left elbow, initial encounter Condition: Good Disposition: HOME - Follow up/Referral - Patient Discharge Instructions Patient Printed Discharge Instructions: DI for Contusion Additional Instructions: Ice, Tylenol, rest If worsen return to ER - Post Discharge Activity
[2019-03-02 18:57] VITALS: BP 119/87; PULSE 71; TEMP 98.4; BMI 23.4
== END 2019-03-02 19:02 | disposition home or self-care (01) ==
LOC: FER 18:20
DX: S50.02XA Contusion of left elbow, initial encounter (principal); W22.01XA Walked into wall, initial encounter; Y93.83 Activity, rough housing and horseplay; Y92.89 Other specified places as the place of occurrence of the external cause
CPT/HCPCS: 73070-TC-LT-FY; 99282-25

== ENCOUNTER 2019-05-18 10:43 | Emergency (ER) | payer OTHER ==
[2019-05-18 10:50] VITALS: BP 123/94; PULSE 66; TEMP 98.7; BMI 23.4
--- NOTE | 2019-05-18 12:11 | PDOC ---
History of Present Illness - General Chief Complaint: Respiratory Stated Complaint: COUGHING/HEADACHE Time Seen by Provider: 05/18/19 11:18 History Source: Patient Exam Limitations: Clinical Condition - History of Present Illness Initial Comments: 05/18/19 12:14 Patient with past medical history of Crohn's disease presented with complaint of nasal congestion, intermittent dry cough and headache upon wake this morning. Patient report was staying out from work today due to runny nose and cold symptoms was told to be evaluated before she can return to work. Denies fever, chills, body ache, sore throat, nausea, vomiting, abdominal pain. Patient did not take anything for symptom. Denies recent travel or sick contact. Denies any other symptoms Is this a multiple visit Asthma Patient?: No Past History - Past Medical History Allergies/Adverse Reactions: Allergies Allergy/AdvReac Type Severity Reaction Status Date / Time No Known Allergies Allergy Verified 05/18/19 10:50 Home Medications: Ambulatory Orders Azathioprine [Azasan] 100 mg PO DAILY 05/22/18 Nitrofurantoin Monohyd/M-Cryst [Macrobid] 100 mg PO BID #14 capsule 09/14/18 Ondansetron [Zofran Odt -] 4 mg SL TID PRN #21 od.tablet 09/14/18 metroNIDAZOLE [Flagyl -] 500 mg PO DAILY #14 tablet 09/14/18 Benzonatate [Tessalon Pearls -] 100 mg PO Q8H PRN #12 capsule 05/18/19 Ipratropium [place] 2 spray NS BID PRN 5 Days #1 spray 05/18/19 Anemia: Yes COPD: No GI Disorders: Yes (CROHN'S) - Immunization History Immunization Up to Date: Yes - Psycho Social/Smoking Cessation Hx Smoking Status: No Smoking History: Current every day smoker Have you smoked in the past 12 months: No Number of Cigarettes Smoked Daily: 0 Information on smoking cessation initiated: No Hx Alcohol Use: No Drug/Substance Use Hx: No Substance Use Type: None Review of Systems - Review of Systems Able to Perform ROS?: Yes Is the patient limited Mohawk proficient: No Constitutional: No: Chills, Fever, Malaise HEENTM: Yes: Symptoms Reported, See HPI, Nose Congestion. No: Eye Pain, Blurred Vision, Tearing, Recent change in vision, Double Vision, Cataracts, Ear Pain, Ocular Prothesis, Ear Discharge, Nose Pain, Tinnitus, Nose Bleeding, Hearing Loss, Throat Pain, Throat Swelling, Mouth Pain, Dental Problems, Difficulty Swallowing, Mouth Swelling, Other Respiratory: Yes: Symptoms reported, See HPI, Cough. No: Orthopnea, Shortness of Breath, SOB with Exertion, SOB at Rest, Stridor, Wheezing, Productive cough, Hemoptysis, Other Cardiac (ROS): No: Symptoms Reported, See HPI, Chest Pain, Edema, Irregular Heart Rate, Lightheadedness, Palpitations, Syncope, Chest Tightness, Other ABD/GI: No: Symptoms Reported, See HPI, Nausea, Vomiting Musculoskeletal: No: Symptoms Reported Integumentary: No: Symptoms Reported, Rash Neurological: Yes: Symptoms reported, See HPI, Headache (mild headache). No: Numbness, Paresthesia, Tingling, Weakness, Dizziness All Other Systems: Reviewed and Negative *Physical Exam - Vital Signs Last Vital Signs Temp Pulse Resp BP Pulse Ox 98.7 F 66 18 123/94 99 05/18/19 10:48 05/18/19 10:48 05/18/19 10:48 05/18/19 10:48 05/18/19 10:48 - Physical Exam 05/18/19 12:13 GENERAL: Well developed, well nourished. Awake and alert. No acute distress. HEENT: Bilateral nasal congestion. Normocephalic, atraumatic. PERRLA, EOMI. No conjunctival pallor. Sclera are non-icteric. Moist mucous membranes. Oropharynx is clear. NECK: Supple. Full ROM. CARDIOVASCULAR: Regular rate and rhythm. No murmurs, rubs, or gallops. Distal pulses are 2+ and symmetric. PULMONARY: No evidence of respiratory distress. Lungs clear to auscultation bilaterally. No wheezing, rales or rhonchi. ABDOMINAL: Soft. Non-tender. Non-distended. No rebound or guarding. No organomegaly. Normoactive bowel sounds. MUSCULOSKELETAL Normal range of motion at all joints. SKIN: Warm and dry. Normal capillary refill. No rashes. No cyanosis. NEUROLOGICAL: Alert, awake, appropriate. Gait is normal without ataxia. PSYCHIATRIC: Cooperative. Good eye contact. Appropriate mood General Appearance: Yes: Nourished, Appropriately Dressed. No: Apparent Distress Medical Decision Making - Medical Decision Making 05/18/19 12:15 Patient with past medical history of Crohn's disease presented with complaint of nasal congestion, intermittent dry cough and headache upon wake this morning. Patient report was staying out from work today due to runny nose and cold symptoms was told to be evaluated before she can return to work. Denies fever, chills, body ache, sore throat, nausea, vomiting, abdominal pain. Patient did not take anything for symptom. Denies recent travel or sick contact. Denies any other symptoms Clinical exam unremarkable except bilateral nasal congestion. Lungs clear to auscultation bilateral. Normal cardio exam. Patient symptoms likely viral URI and stable for discharge on Tessalon Perles as needed for cough and Atrovent nasal spray for nasal congestion with advised to increase fluid intake with PCP follow-up Discharge - Discharge Information Problems reviewed: Yes Clinical Impression/Diagnosis: URI with cough and congestion Condition: Stable Disposition: HOME - Admission No - Additional Discharge Information Prescriptions: Ipratropium [place] 2 spray NS BID PRN 5 Days #1 spray PRN Reason: nasal congestion Benzonatate [Tessalon Pearls -] 100 mg PO Q8H PRN #12 capsule PRN Reason: Cough - Follow up/Referral Referrals: Iliana Gonzales [Primary Care Provider] - - Patient Discharge Instructions Patient Printed Discharge Instructions: DI for Viral Upper Respiratory Infection -- Adult Additional Instructions: Your symptoms is likely from viral infection. Take prescribed medication for cough and congestion. Increase fluid intake. Follow-up with primary care as needed - Post Discharge Activity Work/Back to School Note: Back to Work
== END 2019-05-18 12:14 | disposition home or self-care (01) ==
LOC: JERFT 10:43
DX: J06.9 Acute upper respiratory infection, unspecified (principal); R05 Cough; R09.81 Nasal congestion; K50.90 Crohn's disease, unspecified, without complications; F17.210 Nicotine dependence, cigarettes, uncomplicated
CPT/HCPCS: 99283-25

== ENCOUNTER 2019-11-15 18:00 | Emergency (ER) | payer OTHER ==
[2019-11-15 18:05] VITALS: BP 107/70; PULSE 69; TEMP 98.2; BMI 23.4
[2019-11-15] MEDS ORDERED: ACETAMINOPHEN 500 MG TABLET (FP) PO ONE (18:32)
[2019-11-15] MEDS ORDERED: ACETAMINOPHEN 500 MG TABLET (FP) ONE (18:34)
--- NOTE | 2019-11-15 18:40 | PDOC ---
History of Present Illness - General Chief Complaint: Pain Stated Complaint: PAIN Time Seen by Provider: 11/15/19 18:20 History Source: Patient Exam Limitations: No Limitations - History of Present Illness Initial Comments: 11/15/19 18:37 Patient is a 19-year-old female who presents to the ED with left foot pain that started this morning when she woke up. She states the pain has been getting progressively worse. She states the pain is on the instep of her left foot she is having difficulty walking. She denies any fevers or chills. She denies any known injury. She states that she is unable to take NSAIDs secondary to having a history of Crohn's disease. The patient denies any allergies to medications. Past History - Medical History Allergies/Adverse Reactions: Allergies Allergy/AdvReac Type Severity Reaction Status Date / Time No Known Allergies Allergy Verified 05/18/19 10:50 Home Medications: Ambulatory Orders Azathioprine [Azasan] 100 mg PO DAILY 05/22/18 Nitrofurantoin Monohyd/M-Cryst [Macrobid] 100 mg PO BID #14 capsule 09/14/18 Ondansetron [Zofran Odt -] 4 mg SL TID PRN #21 od.tablet 09/14/18 metroNIDAZOLE [Flagyl -] 500 mg PO DAILY #14 tablet 09/14/18 Benzonatate [Tessalon Pearls -] 100 mg PO Q8H PRN #12 capsule 05/18/19 Ipratropium [place] 2 spray NS BID PRN 5 Days #1 spray 05/18/19 Diclofenac Sodium [Voltaren] 100 gm TP BID PRN #1 tube 11/15/19 Anemia: Yes COPD: No GI Disorders: Yes (CROHN'S) - Reproductive History Is Patient Now?: No - Immunization History Immunization Up to Date: Yes - Psycho-Social/Smoking History Smoking Status: No Smoking History: Never smoked Have you smoked in the past 12 months: No Number of Cigarettes Smoked Daily: 0 - Substance Abuse Hx (Audit-C & DAST Scrn) How often the patient has a drink containing alcohol: Never Score: In Men: 4 or > Positive; In Women: 3 or > Positive: 0 Screen Result (Pos requires Nsg. Audit-10AR): Negative In the last yr the pt used illegal drug/Rx for NonMed reason: No Score: Yes response is considered Positive: 0 Screen Result (Positive result requires Nsg. DAST-10): Negative Review of Systems - Review of Systems Comments:: 11/15/19 18:38 - Review of Systems Able to Perform ROS?: Yes Constitutional: No: Fever, Chills, Loss of Appetite, Night Sweats, Weakness HEENTM: No: Eye Pain, Vision changes, Ear Pain, Throat Pain, Throat Swelling, Mouth Pain, Difficulty Swallowing Respiratory: No: Cough, Shortness of Breath, Wheezing, Sputum Production Cardiac (ROS): No: Chest Pain, Chest Tightness, Palpitations, Irregular Heart Beat, Edema ABD/GI: No: Nausea, Vomiting, Abdominal Pain, Diarrhea : No Dysuria, No Hematuria, No Frequency, No Urgency Musculoskeletal: No: Muscle Pain, Back Pain, Joint Pain, Muscle Weakness, Neck Pain; positive: Left foot pain Integumentary: No: Lesions, Rash Neurological: No: Headache, Numbness, Tingling, Weakness, Speech Difficulties *Physical Exam - Vital Signs Last Vital Signs Temp Pulse Resp BP Pulse Ox 98.2 F 69 18 107/70 100 11/15/19 18:03 11/15/19 18:03 11/15/19 18:03 11/15/19 18:03 11/15/19 18:03 - Physical Exam 11/15/19 18:38 - Physical Exam General Appearance: Nourished, Appropriately Dressed, No Distress HEENT: EOMI, Normal Voice, Hearing Grossly Normal Neck: Supple, No Lymphadenopathy (R), No Lymphadenopathy (L), No Rigidity, No Decreased range of motion Respiratory/Chest: Lungs Clear, Normal Breath Sounds. No Respiratory Distress, No Accessory Muscle Use Cardiovascular: Regular Rhythm, Regular Rate, S1, S2 Musculoskeletal: Normal Inspection. No Decreased Range of Motion; left foot with tenderness to palpation along the plantar fascia of the left foot. DP and PT pulses 2+. Sensation intact distally. Full range of motion of the ankle and all toes. No warmth to touch. No tenderness over the great toe. Extremity: Normal Capillary Refill, Normal Inspection Integumentary: Normal Color, Dry. 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 NML intact, Fully Oriented, Alert, Normal Mood/Affect, Normal Response ED Treatment Course - RADIOLOGY Radiology Studies Ordered: Category Date Time Status FOOT-LEFT [RAD] Stat Radiology 11/15/19 18:32 Ordered - Medications Given in the ED: ED Medications Discontinued Medications Generic Name Dose Route Start Last Admin Trade Name Darrin PRN Reason Stop Dose Admin Acetaminophen 1,000 mg 11/15/19 18:32 11/15/19 18:33 Tylenol - PO 11/15/19 18:33 1,000 mg ONCE ONE Administration Medical Decision Making - Medical Decision Making 11/15/19 18:39 Assessment: Patient is a 19-year-old female with left foot plantar fasciitis. Plan: -Left foot x-ray ordered -Tylenol p.o. given in the ED -If left foot x-ray negative will DC the patient with Voltaren gel as she is unable to take p.o. NSAIDs. -Will reassess 11/15/19 20:01 Patient's x-ray is negative for acute pathology. We will send Voltaren gel to her pharmacy. She has been made aware that she should wear more supportive shoes. She understands and agrees with this treatment plan and she is stable for discharge. Discharge - Discharge Information Problems reviewed: Yes Clinical Impression/Diagnosis: Plantar fasciitis, left Condition: Stable Disposition: HOME - Additional Discharge Information Prescriptions: Diclofenac Sodium [Voltaren] 100 gm TP BID PRN #1 tube PRN Reason: Pain - Follow up/Referral Referrals: Rahul Gonzales MD [Primary Care Provider] - 2 Days Naesem Royal MD [Staff Physician] - - Patient Discharge Instructions Patient Printed Discharge Instructions: DI for Plantar Fasciitis Additional Instructions: Get plenty of rest and avoid any strenuous activity. Do gentle stretching exercises to help stretch the plantar fascia. You can freeze a water bottle and roll your foot over it as this helps massage the pain and ice your foot. Use the Voltaren gel as prescribed. You can continue to take Tylenol for pain. Follow-up with orthopedics for further evaluation and treatment. - Post Discharge Activity Work/Back to School Note: Back to Work
== END 2019-11-15 21:13 | disposition home or self-care (01) ==
LOC: JERFT 18:00
DX: M72.2 Plantar fascial fibromatosis (principal)
CPT/HCPCS: 73630-TC-LT; 99283-25

== ENCOUNTER 2019-12-06 18:12 | Emergency (ER) | payer OTHER ==
--- OUTSIDE RECORDS SUMMARY | 2019-12-06 18:20 | XMS ---
:2000 Author Organization [facility] Support Name Relationship Address Phone [facility] Unavailable [address] [place] [address] [employer] Unavailable Unavailable Unavailable [employer] [place] [place] [address] FLYNN CHATMAN MOTHER [address] [place] [address] FLYNN CHATMAN Mother [address] [place] [address] Re-disclosure Warning The records that you are about to access may contain information from federally- assisted alcohol or drug abuse programs. If such information is present, then the following federally mandated warning applies: This information has been disclosed to you from records protected by federal confidentiality rules (42 CFR part 2). The federal rules prohibit you from making any further disclosure of this information unless further disclosure is expressly permitted by the written consent of the person to whom it pertains or as otherwise permitted by 42 CFR part 2. A general authorization for the release of medical or other information is NOT sufficient for this purpose. The Federal rules restrict any use of the information to criminally investigate or prosecute any alcohol or drug abuse patient.The records that you are about to access may contain highly sensitive health information, the redisclosure of which is protected by Article 27-F of the [facility] Public Health law. If you continue you may haveaccess to information: Regarding HIV / AIDS; Provided by facilities licensed or operated by the [facility] Office of Mental Health; or Provided by the [facility] Office for People With Developmental Disabilities. If such information is present, then the following [facility] mandated warning applies: This information has been disclosed to you from confidential records which are protected by state law. State law prohibits you from making any further disclosure of this information without the specific written consent of the person to whom it pertains, or as otherwise permitted by law. Any unauthorized further disclosure in violation of state law may result in a fine or penitentiary sentence or both. A general authorization for the release of medical or other information is NOT sufficient authorization for further disclosure. Insurance Providers Payer name Policy type Policy ID Covered Covered constitution party's Policy P fernie / Coverage constitution party ID relationship to Lynn Inf ormation type lynn AFFINITY [id number] SP [id number] SELF PAY SP INSURANCE MEDICAID [id number] SP [id number] AFFINITY [id number] SP [id number] AFFINITY [id number] SP [id number] Results ID Date Data Source [id number] 07/13/2019 12:00:00 AM EDT [facility] Name Value Range Interpretation Code Description Data Carmelita rce(s) Supporting Document(s ) 2019-nCoV [facility] RNA XXX ASTON+probe- Imp This lab was ordered by [facility]ateek [place] and reported by [employer] Procedure
[2019-12-06 18:21] VITALS: BP 115/85; PULSE 98; TEMP 98.7; BMI 23.6
--- NOTE | 2019-12-06 18:28 | PDOC ---
History of Present Illness - General Chief Complaint: Urinary Problem Stated Complaint: URINARY SX Time Seen by Provider: 12/06/19 18:27 - History of Present Illness Initial Comments: 12/06/19 18:45 19 F with hx of crohn disease on (asazan), UTI presented to the ED with UTI symptoms. Patient endorsed dysuria, maladorous odor, discharge, increased frequency for the past few days. Patient had nausea, but due to crohn disease. D enies fever, chill, vomiting, back pain. Her period was a few days ago, normal. 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 No Known allergy No smoking, alcohol, but yes to marijuana. ROS GENERAL/CONSTITUTIONAL: No fever or chills. No weakness. HEAD, EYES, EARS, NOSE AND THROAT: No change in vision. No ear pain or discharge. No sore throat. CARDIOVASCULAR: No chest pain or shortness of breath RESPIRATORY: No cough, wheezing, or hemoptysis. GASTROINTESTINAL: + nausea, vomiting, diarrhea or constipation. GENITOURINARY: + dysuria, frequency, or change in urination. MUSCULOSKELETAL: No joint or muscle swelling or pain. No neck or back pain. SKIN: No rash NEUROLOGIC: No headache, vertigo, loss of consciousness, or change in strength/sensation. ENDOCRINE: No increased thirst. No abnormal weight change HEMATOLOGIC/LYMPHATIC: No anemia, easy bleeding, or history of blood clots. ALLERGIC/IMMUNOLOGIC: No hives or skin allergy. PE GENERAL: Awake, alert, and fully oriented, in no acute distress HEAD: No signs of trauma, normocephalic, atraumatic EYES: PERRLA, EOMI, sclera anicteric, conjunctiva clear ENT: Auricles normal inspection, hearing grossly normal, nares patent, oropharynx clear without exudates. Moist mucosa NECK: Normal ROM, supple, no lymphadenopathy, JVD, or masses LUNGS: No distress, speaks full sentences, clear to auscultation bilaterally HEART: Regular rate and rhythm, normal S1 and S2, no murmurs, rubs or gallops, peripheral pulses normal and equal bilaterally. ABDOMEN: Soft, nontender, normoactive bowel sounds. No guarding, no rebound. N o masses EXTREMITIES : Normal inspection, Normal range of motion, no edema. No clubbing or cyanosis. NEUROLOGICAL: Cranial nerves II through XII grossly intact. Normal speech, normal gait, no focal sensorimotor deficits SKIN: Warm, Dry, normal turgor, no rashes or lesions noted Past History - Medical History Allergies/Adverse Reactions: Allergies Allergy/AdvReac Type Severity Reaction Status Date / Time No Known Allergies Allergy Verified 12/06/19 18:13 Home Medications: Ambulatory Orders Azathioprine [Azasan] 100 mg PO DAILY 05/22/18 Cephalexin Monohydrate [Keflex -] 500 mg PO Q8H #21 capsule 12/06/19 Anemia: Yes COPD: No GI Disorders: Yes (CROHN'S) - Reproductive History Is Patient Now?: No - Immunization History Immunization Up to Date: Yes - Psycho-Social/Smoking History Smoking Status: No Smoking History: Current some day smoker Have you smoked in the past 12 months: Yes Number of Cigarettes Smoked Daily: 0 Information on smoking cessation initiated: Yes - Substance Abuse Hx (Audit-C & DAST Scrn) How often the patient has a drink containing alcohol: Never Score: In Men: 4 or > Positive; In Women: 3 or > Positive: 0 Screen Result (Pos requires Nsg. Audit-10AR): Negative *Physical Exam - Vital Signs Last Vital Signs Temp Pulse Resp BP Pulse Ox 98.7 F 98 H 18 115/85 98 12/06/19 18:12 12/06/19 18:12 12/06/19 18:12 12/06/19 18:12 12/06/19 18:12 Medical Decision Making - Medical Decision Making 12/06/19 18:54 19 F with Crohn disease (on asazan) presented here with UTI symptoms. Pelvic exam showed white bubble discharge, with some erythema on cervix. Cervix is closed . No cervix motion tenderness. UA/UC is obtained. Will treat for GC/Cd, and trichomonas. Tested for HIV, Syphylis. Med: ceftriaxone 250 IM , 1g PO azithromycin , 2gPO flagil, Keflex for UTI. 12/06/19 19:11 Discharge - Discharge Information Problems reviewed: Yes Clinical Impression/Diagnosis: Cervicitis, Urethritis Condition: Improved Disposition: HOME - Additional Discharge Information Prescriptions: Cephalexin Monohydrate [Keflex -] 500 mg PO Q8H #21 capsule - Follow up/Referral Referrals: Rahul Gonzales MD [Primary Care Provider] - - Patient Discharge Instructions Patient Printed Discharge Instructions: Facts About Sexually Transmitted Infections Additional Instructions: you have been tested for HIV and syphillis in addition to trichomonas, gonorhea, and chlamydia. you will be called for any abnormal test results. you have been empiracally treated for trichomonas, gonorhea, and chlamydia. you should also follow up with a records officer for your annual PAP smear and followup/ check up. return for any vomiting. fever, abdominal or back pain or any concerns. you are being treated for a urinary tract infection, take keflex 500 mg three times daily for one week. - Post Discharge Activity
[2019-12-06] MEDS ORDERED: metroNIDAZOLE 250 MG TABLET PO ONE (18:43)
[2019-12-06] MEDS ORDERED: AZITHROMYCIN 500 MG TABLET PO ONE (18:43)
--- NOTE | 2019-12-06 18:55 | PDOC ---
Attending Attestation - Resident Resident Name: Edd Ho - ED Attending Attestation I have performed the following: I have examined & evaluated the patient, The case was reviewed & discussed with the resident, I agree w/resident's findings & plan, Exceptions are as noted - HPI HPI: 12/06/19 18:50 19 yo F with h/o chrohns disease, here with c/o dysuria. vaginal dc. no abd pain. no n/v no f/c. had unprotected sex on e month ago concerned for STD exposure no known exposure. would like to be tested. currently menstruating. not . no other complaints. - Physicial Exam PE: 12/06/19 18:51 awake alert lungs clear bilat heart rrr no mrg abd soft nt nd ext wwp. no edema. skin warm and dry no rash. exam: external labia normal. no lesions. speculum scant frothy yellowish dc in vag vault. no CMT on bimanual exam. no adnexal masss or tenderness. - Medical Decision Making 12/06/19 18:52 19 yo F h/o crohns, here with concerns std, and urinary complaints. differential gc chlamydia. trichomonas considered. pt would like to be empiracally treated. given ceftriaxone, azithromycin and flagyl 2 g po. HIV and RPR sent. ua sent, hcg both pending. Discharge - Discharge Information Problems reviewed: Yes Clinical Impression/Diagnosis: Cervicitis, Urethritis Condition: Improved Disposition: HOME - Admission No - Follow up/Referral Referrals: Rahul Gonzales MD [Primary Care Provider] - - Patient Discharge Instructions Patient Printed Discharge Instructions: Facts About Sexually Transmitted Infections Additional Instructions: you have been tested for HIV and syphillis in addition to trichomonas, gonorhea, and chlamydia. you will be called for any abnormal test results. you have been empiracally treated for trichomonas, gonorhea, and chlamydia. you should also follow up with a flocculator operator for your annual PAP smear and followup/ check up. return for any vomiting. fever, abdominal or back pain or any concerns. - Post Discharge Activity
[2019-12-06 19:07] LABS: HCG,QUALITATIVE URINE NEGATIVE
[2019-12-06] MEDS ORDERED: AZITHROMYCIN 500 MG TABLET ONE (19:07)
[2019-12-06 19:15] LABS: EPITHELIAL CELLS MODERATE /hpf
== END 2019-12-06 19:27 | disposition home or self-care (01) ==
LOC: FER 18:12
PROC: 3E0233Z Introduction of Anti-inflammatory into Muscle, Percutaneous Approach (ICD-10-PCS; principal; 2019-12-06)
DX: N72 Inflammatory disease of cervix uteri (principal); N34.1 Nonspecific urethritis
CPT/HCPCS: 36415; 81003; 81015; 84703; 86780; 87086; 87389; 87491; 87591; 87661; 99284-25

== ENCOUNTER 2020-02-27 16:27 | Emergency (ER) | payer OTHER ==
[2020-02-27 16:43] VITALS: BP 116/87; PULSE 92; TEMP 99.3; BMI 24.4
[2020-02-27] MEDS ORDERED: SODIUM CHLORIDE 1,000 ML IV STA (17:32)
[2020-02-27 18:18] LABS: BASO % 0.2 % (0-2.0); EOS % 0.3 % (0-4.5); HEMOGLOBIN 13.2 GM/dl (10.7-15.3); LYMPH % 6.6 % (8-40); MCH 29.4 pg (25.7-33.7); MCHC 32.9 g/dl (32.0-36.0); MEAN CELL VOLUME 89.2 fl (80-96); MEAN PLT VOLUME 7.4 fl (7.5-11.1); MONO % 7.4 % (3.8-10.2); NEUT % 85.5 % (42.8-82.8); PLATELET COUNT 330 K/MM3 (134-434); RBC 4.48 M/mm3 (3.60-5.2); RDW 12.8 % (11.6-15.6); WHITE BLOOD COUNT 9.8 K/mm3 (4.0-10.8)
[2020-02-27 18:25] LABS: ACTIVATED PTT 30.6 SECONDS (25.2-36.5)
[2020-02-27 18:27] LABS: ALBUMIN 4.3 g/dl (3.4-5.0); BILIRUBIN,TOTAL 1.4 mg/dl (0.2-1); CALCIUM 8.9 mg/dl (8.5-10); CREATININE 0.7 mg/dl (0.55-1.3); POTASSIUM 3.5 mmol/L (3.5-5.1); TOT PROT 7.6 g/dl (6.4-8.2)
[2020-02-27 18:29] LABS: INR 1.24 (0.82-1.09); PROTHROMBIN TIME (PATIENT) 13.7 SEC (10.2-13.0)
[2020-02-27 18:33] LABS: HCG,QUALITATIVE URINE Negative
[2020-02-27] MEDS ORDERED: NITROFURANTOIN MACROCRYSTAL 50 MG CAPSULE (FP) PO SCH (19:00)
[2020-02-27] MEDS ORDERED: NITROFURANTOIN MACROCRYSTAL 50 MG CAPSULE (FP) ONE (19:02)
== END 2020-02-27 19:04 | disposition home or self-care (01) ==
LOC: FER 16:27
PROC: 3E0337Z Introduction of Electrolytic and Water Balance Substance into Peripheral Vein, Percutaneous Approach (ICD-10-PCS; principal; 2020-02-27)
DX: R10.9 Unspecified abdominal pain (principal); R53.1 Weakness; N39.0 Urinary tract infection, site not specified
CPT/HCPCS: 36415; 80053; 81003; 81015; 84703; 85025; 85610; 85730; 86850; 86900; 86901; 87086; 87186; 99285-25

== ENCOUNTER 2020-06-07 07:26 | Emergency (ER) | payer OTHER ==
[2020-06-07 07:35] VITALS: BP 138/90; PULSE 88; TEMP 98.7; BMI 23.4
[2020-06-07 09:03] LABS: EPITHELIAL CELLS FEW /hpf
== END 2020-06-07 09:33 | disposition home or self-care (01) ==
LOC: FER 07:26
DX: N39.0 Urinary tract infection, site not specified (principal)
CPT/HCPCS: 81003; 81015; 84703; 87086; 99283-25

== ENCOUNTER 2020-08-07 17:01 | Emergency (ER) | payer OTHER ==
[2020-08-07 17:27] VITALS: BP 119/95; PULSE 88; TEMP 98; BMI 25.4
[2020-08-07 18:22] LABS: ANION GAP 9 MMOL/L (8-16); BASO % 0.4 % (0-2.0); CALCIUM 8.5 mg/dl (8.5-10); CHLORIDE 104 mmol/L (98-107); CO2 23 mmol/L (21-32); EOS % 0.5 % (0-4.5); GLUCOSE,RANDOM 92 mg/dl (74-106); HEMATOCRIT 35.5 % (32.4-45.2); LYMPH % 17.5 % (8-40); MCH 29.6 pg (25.7-33.7); MCHC 33.8 g/dl (32.0-36.0); MEAN CELL VOLUME 87.7 fl (80-96); MONO % 13.8 % (3.8-10.2); NEUT % 67.8 % (42.8-82.8); PLATELET COUNT 299 K/MM3 (134-434); RBC 4.04 M/mm3 (3.60-5.2); RDW 13.7 % (11.6-15.6); SODIUM 136 mmol/L (136-145); WHITE BLOOD COUNT 6.4 K/mm3 (4.0-10.8)
[2020-08-07 18:27] LABS: ALK PHOS 52 U/L (45-117); BILIRUBIN,TOTAL 0.9 mg/dl (0.2-1); CREATININE 0.8 mg/dl (0.55-1.3); SGOT/AST 15 U/L (15-37); SGPT/ALT 11 U/L (13-61); TOT PROT 7.1 g/dl (6.4-8.2)
[2020-08-07 19:22] LABS: LIPASE 144 U/L (73-393)
== END 2020-08-07 19:52 | disposition home or self-care (01) ==
LOC: FER 17:01
DX: J40 Bronchitis, not specified as acute or chronic (principal)
CPT/HCPCS: 36415; 71046-TC-FY; 80053; 83690; 84484; 85025; 87880; 93005; 99285-25; C9803; U0003; U0005

== ENCOUNTER 2020-08-13 14:07 | Emergency (ER) | payer OTHER ==
[2020-08-13 14:12] VITALS: BP 108/83; PULSE 95; TEMP 98.2; BMI 25.4
[2020-08-13] MEDS ORDERED: LIDOCAINE 5% TOPICAL PATCH TP ONE (15:46)
[2020-08-13] MEDS ORDERED: LIDOCAINE 5% TOPICAL PATCH ONE (15:48)
[2020-08-13] MEDS ORDERED: LIDOCAINE PATCH REMOVAL MC SCH (22:00)
== END 2020-08-13 15:54 | disposition home or self-care (01) ==
LOC: JERFT 14:07
DX: M54.9 Dorsalgia, unspecified (principal)
CPT/HCPCS: 99283-25

== ENCOUNTER 2020-11-13 10:12 | Emergency (ER) | payer OTHER ==
[2020-11-13 10:49] VITALS: TEMP 97.7; BMI 23.4
[2020-11-13] MEDS ORDERED: ACETAMINOPHEN 1000 MG/100 ML VIAL (NON FORMULARY) IVPB ONE (11:20)
[2020-11-13] MEDS ORDERED: SODIUM CHLORIDE 1,000 ML IV STA (11:20)
[2020-11-13] MEDS ORDERED: ONDANSETRON 4 MG/2 ML VIAL IVPUSH ONE (11:20)
[2020-11-13] MEDS ORDERED: ONDANSETRON 4 MG/2 ML VIAL ONE (11:34)
[2020-11-13] MEDS ORDERED: ACETAMINOPHEN INJECTION 100 ML IVPB ONE (11:34)
[2020-11-13 12:24] LABS: BASO % 0.4 % (0-2.0); EOS % 0.5 % (0-4.5); HEMATOCRIT 37.1 % (32.4-45.2); HEMOGLOBIN 12.8 GM/dL (10.7-15.3); LYMPH % 16.4 % (8-40); MCH 29.9 pg (25.7-33.7); MCHC 34.4 g/dl (32.0-36.0); MEAN PLT VOLUME 8.5 fl (7.5-11.1); MONO % 11.2 % (3.8-10.2); NEUT % 71.5 % (42.8-82.8); PLATELET COUNT 273 10^3/uL (134-434); RBC 4.27 M/mm3 (3.60-5.2); RDW 13.4 % (11.6-15.6); WHITE BLOOD COUNT 8.3 K/mm3 (4.0-10.0)
[2020-11-13 12:32] LABS: INR 0.99 (0.83-1.09); PROTHROMBIN TIME (PATIENT) 12.2 SEC (9.7-13.0)
[2020-11-13 12:43] LABS: ALBUMIN 3.8 g/dl (3.4-5.0); BLOOD UREA NITROGEN 14.9 mg/dL (7-18); CALCIUM 8.6 mg/dL (8.5-10.1)
[2020-11-13 12:47] LABS: CREATININE 0.8 mg/dL (0.55-1.3)
[2020-11-13 12:48] LABS: BILIRUBIN,TOTAL 0.5 mg/dL (0.2-1); TOT PROT 7.8 g/dl (6.4-8.2)
[2020-11-13 14:50] VITALS: BP 112/80; PULSE 72
== END 2020-11-13 14:50 | disposition home or self-care (01) ==
LOC: JER 10:12
PROC: 3E0333Z Introduction of Anti-inflammatory into Peripheral Vein, Percutaneous Approach (ICD-10-PCS; principal; 2020-11-13)
PROC: 3E033GC Introduction of Other Therapeutic Substance into Peripheral Vein, Percutaneous Approach (ICD-10-PCS; 2020-11-13)
PROC: 3E0337Z Introduction of Electrolytic and Water Balance Substance into Peripheral Vein, Percutaneous Approach (ICD-10-PCS; 2020-11-13)
DX: K50.90 Crohn's disease, unspecified, without complications (principal)
CPT/HCPCS: 36415; 80053; 85025; 85610; 99284-25; J0131

== ENCOUNTER 2021-02-01 08:06 | Emergency (ER) | payer OTHER ==
[2021-02-01 08:14] VITALS: TEMP 98.1; BMI 27.3
[2021-02-01] MEDS ORDERED: SODIUM CHLORIDE 1,000 ML IV STA (09:41)
[2021-02-01] MEDS ORDERED: ACETAMINOPHEN 1000 MG/100 ML VIAL IVPB ONE (09:41)
[2021-02-01] MEDS ORDERED: ACETAMINOPHEN INJECTION 100 ML IVPB ONE (10:06)
[2021-02-01 10:18] LABS: HEMATOCRIT 37.6 % (32.4-45.2); HEMOGLOBIN 12.9 GM/dL (10.7-15.3); MCH 29.8 pg (25.7-33.7); MCHC 34.4 g/dl (32.0-36.0); MEAN CELL VOLUME 86.7 fl (80-96); PLATELET COUNT 227 10^3/uL (134-434); RBC 4.34 M/mm3 (3.60-5.2); RDW 15.1 % (11.6-15.6)
[2021-02-01 11:12] LABS: ALBUMIN 3.7 g/dl (3.4-5.0); BILIRUBIN,TOTAL 1.3 mg/dL (0.2-1); BLOOD UREA NITROGEN 7.4 mg/dL (7-18); CALCIUM 8.5 mg/dL (8.5-10.1); CREATININE 0.7 mg/dL (0.55-1.3)
[2021-02-01 12:25] LABS: EPI CELLS >36 /uL (0-25.1); HYALINE CASTS 2 /uL (0-3.1); URINE APPEARANCE CLEAR; URINE BACTERIA 7169 /uL (0-1359); URINE BILIRUBIN NEGATIVE (NEGATIVE); URINE COLOR YELLOW; URINE GLUCOSE (UA) NEGATIVE (NEGATIVE); URINE KETONE NEGATIVE (NEGATIVE); URINE LEUK ESTERASE 1+ (NEGATIVE); URINE NITRITE NEGATIVE (NEGATIVE); URINE PROTEIN 1+ (NEGATIVE); URINE RBC 92 /uL (0-23.9); URINE UROBILINOGEN 0.2 mg/dL (0.2-1.0); URINE WBC 65 /uL (0-25.8)
[2021-02-01 13:40] VITALS: BP 115/75; PULSE 87
== END 2021-02-01 13:45 | disposition home or self-care (01) ==
LOC: JER 08:06
PROC: 3E033NZ Introduction of Analgesics, Hypnotics, Sedatives into Peripheral Vein, Percutaneous Approach (ICD-10-PCS; principal; 2021-02-01)
PROC: 3E0337Z Introduction of Electrolytic and Water Balance Substance into Peripheral Vein, Percutaneous Approach (ICD-10-PCS; 2021-02-01)
DX: N30.01 Acute cystitis with hematuria (principal)
CPT/HCPCS: 36415; 74176-TC; 80053; 81003; 84703; 85027; 87086; 87186; 96361; 96374; 99285-25; J0131

== ENCOUNTER 2021-03-17 11:40 | Emergency (ER) | payer OTHER ==
[2021-03-17 11:56] VITALS: BP 142/101; PULSE 82; TEMP 99.4; BMI 30.2
[2021-03-17] MEDS ORDERED: ACETAMINOPHEN 500 MG TABLET (FP) PO ONE (12:38)
[2021-03-17] MEDS ORDERED: ACETAMINOPHEN 500 MG TABLET (FP) ONE (12:40)
== END 2021-03-17 14:09 | disposition home or self-care (01) ==
LOC: FER 11:40
DX: R05.9 Cough, unspecified (principal)
CPT/HCPCS: 71045-TC-FY; 87804; 99284-25; C9803; U0003; U0005

== ENCOUNTER 2021-09-05 13:12 | Emergency (ER) | payer OTHER ==
[2021-09-05 13:37] VITALS: BP 115/80; PULSE 68; TEMP 98.8; BMI 29.2
[2021-09-05] MEDS ORDERED: DIPHTH,PERTUSS(ACELL),TET 0.5 ML DISP.SYRIN IM ONE ×2 (13:49→14:09)
[2021-09-05] MEDS ORDERED: AMOX TR/POT CLAV 875MG/125MG TABLETS (FP) PO ONE (13:49)
[2021-09-05] MEDS ORDERED: AMOX TR/POT CLAV 875MG/125MG TABLETS (FP) ONE (14:08)
== END 2021-09-05 14:25 | disposition home or self-care (01) ==
LOC: FER 13:12
PROC: 3E0234Z Introduction of Serum, Toxoid and Vaccine into Muscle, Percutaneous Approach (ICD-10-PCS; principal; 2021-09-05)
DX: S61.451A Open bite of right hand, initial encounter (principal); S61.452A Open bite of left hand, initial encounter; W55.01XA Bitten by cat, initial encounter
CPT/HCPCS: 90715; 99283-25

== ENCOUNTER 2021-11-12 10:11 | Emergency (ER) | payer OTHER ==
[2021-11-12] MEDS ORDERED: AMOX TR/POT CLAV 875MG/125MG TABLETS (FP) PO ONE (10:17)
[2021-11-12] MEDS ORDERED: BACITRACIN 15 GM TUBE TOPICAL OINTMENT TP ONE (10:17)
[2021-11-12 10:19] VITALS: BP 122/90; PULSE 76; RESP 16; TEMP 98.7; BMI 29.9
[2021-11-12] MEDS ORDERED: AMOX TR/POT CLAV 875MG/125MG TABLETS (FP) ONE (10:26)
== END 2021-11-12 11:07 | disposition home or self-care (01) ==
LOC: FER 10:11
DX: S61.452A Open bite of left hand, initial encounter (principal); W55.01XA Bitten by cat, initial encounter
CPT/HCPCS: 73130-TC-LT-FY; 99283-25

== ENCOUNTER 2021-12-12 14:28 | Emergency (ER) | payer OTHER ==
[2021-12-12 14:40] VITALS: BP 124/82; PULSE 63; RESP 16; TEMP 99.4; BMI 29.7
[2021-12-12] MEDS ORDERED: DEXAMETHASONE SOD PHOSPHATE 10 MG/1 ML VIAL IM ONE (14:52)
[2021-12-12] MEDS ORDERED: DEXAMETHASONE SOD PHOSPHATE 10 MG/1 ML VIAL ONE (14:55)
== END 2021-12-12 15:25 | disposition home or self-care (01) ==
LOC: FER 14:28
PROC: 3E0233Z Introduction of Anti-inflammatory into Muscle, Percutaneous Approach (ICD-10-PCS; principal; 2021-12-12)
DX: J03.90 Acute tonsillitis, unspecified (principal)
CPT/HCPCS: 87651; 99284-25; J1100

== ENCOUNTER 2022-01-14 19:36 | Emergency (ER) | payer OTHER ==
[2022-01-14 19:48] VITALS: RESP 16; BMI 29.7
[2022-01-14] MEDS ORDERED: LIDOCAINE 5% TOPICAL PATCH TP ONE (19:55)
[2022-01-14 19:57] VITALS: BP 133/83; PULSE 82; TEMP 98.1
[2022-01-14] MEDS ORDERED: LIDOCAINE 5% TOPICAL PATCH ONE (20:11)
[2022-01-14] MEDS ORDERED: LIDOCAINE PATCH REMOVAL MC SCH (22:00)
== END 2022-01-14 20:43 | disposition home or self-care (01) ==
LOC: FER 19:36
DX: S40.022A Contusion of left upper arm, initial encounter (principal); W10.9XXA Fall (on) (from) unspecified stairs and steps, initial encounter
CPT/HCPCS: 73060-TC-LT-FY; 99283-25

== ENCOUNTER 2022-01-28 18:42 | Emergency (ER) | payer OTHER ==
[2022-01-28 18:51] VITALS: BP 119/77; PULSE 81; RESP 16; TEMP 98.6; BMI 30.8
[2022-01-28] MEDS ORDERED: AMOX TR/POT CLAV 875MG/125MG TABLETS (FP) PO ONE (19:15)
[2022-01-28] MEDS ORDERED: AMOX TR/POT CLAV 875MG/125MG TABLETS (FP) ONE (19:17)
== END 2022-01-28 19:20 | disposition home or self-care (01) ==
LOC: FER 18:42
DX: S61.431A Puncture wound without foreign body of right hand, initial encounter (principal); W55.01XA Bitten by cat, initial encounter
CPT/HCPCS: 99283-25

== ENCOUNTER 2022-02-09 14:12 | Emergency (ER) | payer OTHER ==
[2022-02-09 14:34] VITALS: BP 111/75; PULSE 88; RESP 20; TEMP 99.5; BMI 29.2
[2022-02-09] MEDS ORDERED: FLUCONAZOLE 150 MG TABLET PO ONE ×2 (15:23→15:58)
== END 2022-02-09 16:04 | disposition home or self-care (01) ==
LOC: FER 14:12
DX: B37.31 Acute candidiasis of vulva and vagina (principal); B34.9 Viral infection, unspecified
CPT/HCPCS: 0241U-QW; 81003; 84703; 87086; 99283-25

== ENCOUNTER 2022-03-12 11:50 | Emergency (ER) | payer OTHER ==
[2022-03-12 11:57] VITALS: BP 134/95; PULSE 59; RESP 18; TEMP 98.6; BMI 30.2
[2022-03-12] MEDS ORDERED: ACETAMINOPHEN 325 MG TABLET (FP) PO ONE (13:32)
[2022-03-12] MEDS ORDERED: ACETAMINOPHEN 325 MG TABLET (FP) ONE (13:41)
[2022-03-12 17:25] LABS: THROAT:GRP A STREP NOT DETECTED (NOTDETECTED)
== END 2022-03-12 13:48 | disposition home or self-care (01) ==
LOC: FER 11:50
DX: J02.9 Acute pharyngitis, unspecified (principal); J06.9 Acute upper respiratory infection, unspecified
CPT/HCPCS: 0241U-QW; 87651; 99283-25

== ENCOUNTER 2022-05-01 15:24 | Emergency (ER) | payer BC, OTHER ==
[2022-05-01 15:35] VITALS: BP 118/85; PULSE 88; RESP 16; TEMP 98; BMI 31.0
[2022-05-01 17:12] LABS: HEMATOCRIT 38.6 % (32.4-45.2); HEMOGLOBIN 13.8 G/dL (10.7-15.3); MCH 31.1 pg (25.7-33.7); MCHC 35.8 g/dl (32.0-36.0); MEAN CELL VOLUME 86.9 fl (80-96); PLATELET COUNT 206.1 10^3/uL (134-434); RBC 4.44 10^6/uL (3.60-5.2); WHITE BLOOD COUNT 8.6 10^3/uL (4.0-10.8)
[2022-05-01 17:19] LABS: PROTHROMBIN TIME (PATIENT) 11.5 SEC (9.7-13.0)
[2022-05-01 17:21] LABS: ACTIVATED PTT 31.2 SECONDS (25.2-36.5)
[2022-05-01 17:26] LABS: ALBUMIN 4.3 g/dl (3.4-5.0); BILIRUBIN,TOTAL 1.6 mg/dl (0.2-1); CALCIUM 9.1 mg/dl (8.5-10); CREATININE 0.7 mg/dl (0.55-1.3); TOT PROT 7.4 g/dl (6.4-8.2)
[2022-05-01 19:22] LABS: SYPHILIS W/ RPR CONF NON-REACTIVE (NONREACTIVE)
[2022-05-01 19:49] LABS: HIV INTERPRETATION NEGATIVE (NEGATIVE)
[2022-05-01 20:28] LABS: PLATELET ESTIMATE ADEQUATE
== END 2022-05-01 19:07 | disposition home or self-care (01) ==
LOC: FER 15:24
DX: R10.32 Left lower quadrant pain (principal); K59.00 Constipation, unspecified; R11.2 Nausea with vomiting, unspecified
CPT/HCPCS: 36415; 74177-TC; 76830-TC; 80053; 81003; 81025; 83690; 85025; 85610; 85730; 86780; 86803; 87086; 87186; 87389; 87491; 87591; 99285-25; Q9967

== ENCOUNTER 2022-06-06 10:50 | Emergency (ER) | payer BC ==
[2022-06-06 11:08] VITALS: BP 122/88; PULSE 86; RESP 18; TEMP 98.2; BMI 30.2
[2022-06-06] MEDS ORDERED: ACETAMINOPHEN 1000 MG/100 ML BAG IVPB ONE (11:31)
[2022-06-06] MEDS ORDERED: SODIUM CHLORIDE 0.9% 1000 ML INFUS.BAG IV ONE (11:31)
[2022-06-06] MEDS ORDERED: CLINDAMYCIN 600MG PREMIX IVPB 600 MG/50 ML BAG IVPB ONE ×2 (11:32→11:37)
[2022-06-06] MEDS ORDERED: DEXAMETHASONE SOD PHOSPHATE 10 MG/1 ML VIAL IVPUSH ONE (11:32)
[2022-06-06] MEDS ORDERED: DEXAMETHASONE SOD PHOSPHATE/PF 10 MG/ML SDV ONE (11:37)
[2022-06-06] MEDS ORDERED: ACETAMINOPHEN INJECTION 100 ML IVPB ONE (11:37)
[2022-06-06] MEDS ORDERED: IBUPROFEN 400 MG TABLET (FP) PO ONE ×2 (13:03)
== END 2022-06-06 14:10 | disposition home or self-care (01) ==
LOC: FER 10:50
PROC: 3E033GC Introduction of Other Therapeutic Substance into Peripheral Vein, Percutaneous Approach (ICD-10-PCS; principal; 2022-06-06)
DX: J02.9 Acute pharyngitis, unspecified (principal)
CPT/HCPCS: 87651; 99284-25; J1100

== ENCOUNTER 2022-10-13 10:40 | Emergency (ER) | payer BC, OTHER ==
[2022-10-13 10:52] VITALS: BMI 29.2
[2022-10-13 14:13] VITALS: BP 128/90; PULSE 54; RESP 16; TEMP 98
[2022-10-13] MEDS ORDERED: ONDANSETRON *ODT* 4 MG TABLET SL ONE ×2 (14:13→14:15)
[2022-10-13] MEDS ORDERED: ONDANSETRON *ODT* 4 MG TABLET ONE (14:15)
== END 2022-10-13 15:35 | disposition home or self-care (01) ==
LOC: JER 10:40
DX: R51.9 Headache, unspecified (principal); R68.84 Jaw pain; M54.2 Cervicalgia; V43.62XA Car passenger injured in collision with other type car in traffic accident, initial encounter; W22.8XXA Striking against or struck by other objects, initial encounter
CPT/HCPCS: 36415; 70450-TC; 70486-TC; 72125-TC; 84703; 99284-25; Q0162

== ENCOUNTER 2023-01-16 16:51 | Emergency (ER) | payer OTHER ==
[2023-01-16 17:04] VITALS: BP 122/74; PULSE 78; RESP 18; TEMP 98.6; BMI 30.2
[2023-01-16] MEDS ORDERED: ACETAMINOPHEN 650 MG/20.3 ML ORAL SOLUTION (CUPS) PO ONE (18:38)
[2023-01-16] MEDS ORDERED: ACETAMINOPHEN 650 MG/20.3 ML ORAL SOLUTION (CUPS) ONE (18:47)
== END 2023-01-16 19:10 | disposition home or self-care (01) ==
LOC: FER 16:51
DX: R07.0 Pain in throat (principal); J02.9 Acute pharyngitis, unspecified
CPT/HCPCS: 87651; 99283-25

== ENCOUNTER 2023-01-26 19:17 | Emergency (ER) | payer OTHER ==
[2023-01-26 19:24] VITALS: BP 123/91; PULSE 77; RESP 16; TEMP 98.7; BMI 30.2
[2023-01-26 19:40] LABS: HCG,QUALITATIVE URINE Negative
[2023-01-26] MEDS ORDERED: FLUCONAZOLE 150 MG TABLET PO ONE ×2 (20:00→20:01)
== END 2023-01-26 20:06 | disposition home or self-care (01) ==
LOC: FER 19:17
DX: L29.2 Pruritus vulvae (principal); B37.31 Acute candidiasis of vulva and vagina
CPT/HCPCS: 81003; 84703; 87086; 99283-25

== ENCOUNTER 2023-01-30 18:43 | Emergency (ER) | payer OTHER ==
[2023-01-30 18:57] VITALS: BP 123/74; PULSE 89; RESP 16; TEMP 97.8; BMI 30.2
[2023-01-30 19:59] LABS: HCG,QUALITATIVE URINE Negative
[2023-01-30 20:23] LABS: HEMATOCRIT 41.5 % (32.4-45.2); HEMOGLOBIN 14.1 G/dL (10.7-15.3); MEAN CELL VOLUME 88.2 fl (80-96); MEAN PLT VOLUME 8.1 fl (7.5-11.1); PLATELET COUNT 199.7 10^3/uL (134-434); RDW 14.5 % (11.6-15.6); WHITE BLOOD COUNT 11.2 10^3/uL (4.0-10.8)
[2023-01-30 20:43] LABS: ALBUMIN 4.6 g/dl (3.4-5.0); CALCIUM 9.4 mg/dl (8.5-10.1); POTASSIUM 3.9 mmol/L (3.5-5.1)
[2023-01-30 20:43] LABS: PLATELET ESTIMATE ADEQUATE
== END 2023-01-30 22:13 | disposition home or self-care (01) ==
LOC: FER 18:43
DX: J02.9 Acute pharyngitis, unspecified (principal); R53.81 Other malaise; Z20.822 Contact with and (suspected) exposure to COVID-19
CPT/HCPCS: 36415; 80053; 81003; 81015; 84703; 85027; 87086; 87186; 87491; 87591; 87651; 99283-25

== ENCOUNTER 2023-05-10 16:03 | Emergency (ER) | payer OTHER ==
[2023-05-10 16:15] VITALS: BP 124/90; PULSE 79; RESP 18; TEMP 97.1; BMI 29.6
[2023-05-10] MEDS ORDERED: ACETAMINOPHEN 325 MG TABLET (FP) ONE (16:48)
[2023-05-10] MEDS: ACETAMINOPHEN 325 MG TABLET (FP) PO ONE (16:50)
[2023-05-10 19:53] LABS: THROAT:GRP A STREP NOT DETECTED (NOTDETECTED)
== END 2023-05-10 18:51 | disposition home or self-care (01) ==
LOC: JERFT 16:03
DX: R05.9 Cough, unspecified (principal); J02.9 Acute pharyngitis, unspecified; R09.81 Nasal congestion; Z20.822 Contact with and (suspected) exposure to COVID-19
CPT/HCPCS: 0241U-QW; 87651; 99283-25

== ENCOUNTER 2023-05-12 10:45 | Emergency (ER) | payer OTHER ==
[2023-05-12 11:06] VITALS: BP 120/73; PULSE 83; RESP 20; TEMP 98.5; BMI 29.6
[2023-05-12] MEDS ORDERED: AMOXICILLIN 250 MG CAPSULE ONE (11:54)
[2023-05-12] MEDS: AMOXICILLIN 500 MG CAPSULE (FP) PO ONE (11:55)
[2023-05-12 14:00] LABS: THROAT:GRP A STREP NOT DETECTED (NOTDETECTED)
== END 2023-05-12 12:12 | disposition home or self-care (01) ==
LOC: FER 10:45
DX: R05.9 Cough, unspecified (principal); R09.82 Postnasal drip; J32.9 Chronic sinusitis, unspecified; Z20.822 Contact with and (suspected) exposure to COVID-19
CPT/HCPCS: 0241U-QW; 71046-TC-FY; 87651; 99284-25

== ENCOUNTER 2023-05-31 20:10 | Emergency (ER) | payer OTHER ==
[2023-05-31 20:21] VITALS: BP 133/98; PULSE 100; RESP 18; TEMP 99; BMI 29.7
[2023-05-31] MEDS ORDERED: ONDANSETRON 4 MG/2 ML VIAL ONE (20:33)
[2023-05-31] MEDS ORDERED: ACETAMINOPHEN INJECTION 100 ML IVPB ONE (20:34)
[2023-05-31] MEDS: ACETAMINOPHEN 1000 MG/100 ML BAG IVPB ONE (20:39)
[2023-05-31] MEDS: ONDANSETRON 4 MG/2 ML VIAL IVPUSH ONE (20:40)
[2023-05-31 20:51] LABS: HEMATOCRIT 44.6 % (32.4-45.2); HEMOGLOBIN 14.7 G/dL (10.7-15.3); MEAN PLT VOLUME 8.4 fl (7.5-11.1); PLATELET COUNT 195.6 10^3/uL (134-434); RBC 5.07 10^6/uL (3.60-5.2); RDW 14.4 % (11.6-15.6); WHITE BLOOD COUNT 6.7 10^3/uL (4.0-10.8)
[2023-05-31 20:57] LABS: PLATELET ESTIMATE ADEQUATE
[2023-05-31] MEDS: SODIUM CHLORIDE 1,000 ML IV ONE (21:04)
[2023-05-31 21:07] LABS: ALBUMIN 4.5 g/dl (3.4-5.0); CALCIUM 9.5 mg/dl (8.5-10.1); CREATININE 0.9 mg/dl (0.6-1.3); POTASSIUM 3.5 mmol/L (3.5-5.1); TOT PROT 7.3 g/dl (6.4-8.2)
== END 2023-06-01 00:10 | disposition home or self-care (01) ==
LOC: FER 20:10
PROC: 3E030NZ Introduction of Analgesics, Hypnotics, Sedatives into Peripheral Vein, Open Approach (ICD-10-PCS; principal; 2023-05-31)
PROC: 3E030GC Introduction of Other Therapeutic Substance into Peripheral Vein, Open Approach (ICD-10-PCS; 2023-05-31)
PROC: 3E0337Z Introduction of Electrolytic and Water Balance Substance into Peripheral Vein, Percutaneous Approach (ICD-10-PCS; 2023-05-31)
DX: R11.2 Nausea with vomiting, unspecified (principal); R19.7 Diarrhea, unspecified; R42 Dizziness and giddiness; R53.1 Weakness
CPT/HCPCS: 36415; 80053; 85027; 99284-25; J0131

== ENCOUNTER 2023-07-19 19:39 | Emergency (ER) | payer SELFPAY ==
[2023-07-19 19:56] VITALS: BP 125/93; PULSE 67; RESP 16; TEMP 99.2; BMI 28.3
[2023-07-19] MEDS: SODIUM CHLORIDE 1,000 ML IV ONE (20:10)
[2023-07-19 20:25] LABS: HEMOGLOBIN 13.1 G/dL (10.7-15.3); MCH 28.9 pg (25.7-33.7); MCHC 32.9 g/dl (32.0-36.0); MEAN PLT VOLUME 7.8 fl (7.5-11.1); PLATELET COUNT 227.3 10^3/uL (134-434); RBC 4.55 10^6/uL (3.60-5.2)
[2023-07-19 20:43] LABS: ALBUMIN 4.6 g/dl (3.4-5.0); BILIRUBIN,TOTAL 1.4 mg/dl (0.2-1); CALCIUM 9.5 mg/dl (8.5-10.1); CREATININE 0.8 mg/dl (0.6-1.3); POTASSIUM 3.6 mmol/L (3.5-5.1); TOT PROT 7.3 g/dl (6.4-8.2)
== END 2023-07-19 21:44 | disposition home or self-care (01) ==
LOC: FER 19:39
PROC: 3E0337Z Introduction of Electrolytic and Water Balance Substance into Peripheral Vein, Percutaneous Approach (ICD-10-PCS; principal; 2023-07-19)
DX: R50.9 Fever, unspecified (principal); B34.9 Viral infection, unspecified; Z20.822 Contact with and (suspected) exposure to COVID-19
CPT/HCPCS: 0241U-QW; 36415; 80053; 85027; 87651; 99284-25

== ENCOUNTER 2023-08-04 01:15 | Emergency (ER) | payer OTHER ==
[2023-08-04 01:37] VITALS: RESP 16; BMI 28.3
[2023-08-04] MEDS ORDERED: ONDANSETRON 4 MG/2 ML VIAL ONE (01:38)
[2023-08-04] MEDS: ONDANSETRON 4 MG/2 ML VIAL IVPB ONE (01:59)
[2023-08-04] MEDS: SODIUM CHLORIDE 1,000 ML IV STA (01:59)
[2023-08-04 02:01] VITALS: BP 111/80; PULSE 84; TEMP 98.7
[2023-08-04 02:55] LABS: BASO % 0.4 % (0-2.0); EOS % 0.9 % (0-4.5); HEMATOCRIT 37.5 % (32.4-45.2); LYMPH % 23.2 % (8-40); MCH 30.1 pg (25.7-33.7); MCHC 34.8 g/dl (32.0-36.0); MEAN CELL VOLUME 86.5 fl (80-96); MEAN PLT VOLUME 8.1 fl (7.5-11.1); MONO % 12.6 % (3.8-10.2); NEUT % 62.9 % (42.8-82.8); PLATELET COUNT 223 10^3/uL (134-434); RBC 4.34 M/mm3 (3.60-5.2); RDW 13.5 % (11.6-15.6); WHITE BLOOD COUNT 7.8 K/mm3 (4.0-10.0)
[2023-08-04 02:57] LABS: EPI CELLS >36 /uL (0-25.1); HYALINE CASTS 5 /uL (0-3.1); PH,URINE 6.5 (5.0-8.0); URINE APPEARANCE TURBID; URINE BACTERIA 6036 /uL (0-1359); URINE BILIRUBIN NEGATIVE (NEGATIVE); URINE COLOR YELLOW; URINE GLUCOSE (UA) NEGATIVE (NEGATIVE); URINE KETONE TRACE (NEGATIVE); URINE LEUK ESTERASE 1+ (NEGATIVE); URINE NITRITE NEGATIVE (NEGATIVE); URINE PROTEIN 1+ (NEGATIVE); URINE WBC 95 /uL (0-25.8)
[2023-08-04 03:48] LABS: POTASSIUM 3.8 mmol/L (3.5-5.1)
[2023-08-04 03:50] LABS: CALCIUM 8.4 mg/dL (8.5-10.1)
[2023-08-04 03:51] LABS: ALBUMIN 3.5 g/dl (3.4-5.0)
[2023-08-04 03:54] LABS: CREATININE 0.8 mg/dL (0.55-1.3)
[2023-08-04 03:55] LABS: BILIRUBIN,TOTAL 0.9 mg/dL (0.2-1); TOT PROT 6.9 g/dl (6.4-8.2)
[2023-08-04 08:23] LABS: URINE RBC 37 /uL (0-23.9); YEAST NONE SEEN (NEGATIVE)
== END 2023-08-04 04:30 | disposition home or self-care (01) ==
LOC: FER 01:15
PROC: 3E0337Z Introduction of Electrolytic and Water Balance Substance into Peripheral Vein, Percutaneous Approach (ICD-10-PCS; principal; 2023-08-04)
DX: K50.90 Crohn's disease, unspecified, without complications (principal); N39.0 Urinary tract infection, site not specified; R11.2 Nausea with vomiting, unspecified
CPT/HCPCS: 36415; 80053; 81003; 85025; 99284-25

== ENCOUNTER 2023-09-02 20:10 | Emergency (ER) | payer OTHER ==
[2023-09-02 20:26] VITALS: BP 117/80; RESP 20; BMI 27.6
[2023-09-02] MEDS ORDERED: cefTRIAXone SODIUM 1 GM VIAL ONE (20:38)
[2023-09-02] MEDS ORDERED: ACETAMINOPHEN INJECTION 100 ML IVPB ONE (20:39)
[2023-09-02] MEDS: ACETAMINOPHEN 1000 MG/100 ML BAG IVPB ONE (20:40)
[2023-09-02] MEDS: ACETAMINOPHEN 325 MG TABLET (FP) PO ONE (20:54)
[2023-09-02] MEDS: CEFTRIAXONE 1 GM in DEXTROSE 5%-WATER - 50 ML IVPB ONE (20:54)
[2023-09-02] MEDS: CEPHALEXIN MONOHYDRATE 500 MG CAPSULE (UD) PO ONE (20:55)
[2023-09-02 21:35] VITALS: TEMP 99.5
[2023-09-02 21:54] VITALS: PULSE 82
== END 2023-09-02 21:59 | disposition home or self-care (01) ==
LOC: FER 20:10
PROC: 3E03329 Introduction of Other Anti-infective into Peripheral Vein, Percutaneous Approach (ICD-10-PCS; principal; 2023-09-02)
PROC: 3E033NZ Introduction of Analgesics, Hypnotics, Sedatives into Peripheral Vein, Percutaneous Approach (ICD-10-PCS; 2023-09-02)
DX: N30.00 Acute cystitis without hematuria (principal); J02.0 Streptococcal pharyngitis; R50.9 Fever, unspecified; R10.30 Lower abdominal pain, unspecified; R11.2 Nausea with vomiting, unspecified; R63.0 Anorexia
CPT/HCPCS: 81003; 81015; 87651; 99284-25; J0131

== ENCOUNTER 2024-01-07 14:22 | Emergency (ER) | payer OTHER ==
[2024-01-07 14:31] VITALS: BP 118/99; PULSE 75; RESP 18; TEMP 98.2; BMI 26.4
[2024-01-07] MEDS ORDERED: DEXAMETHASONE SOD PHOSPHATE 10 MG/1 ML VIAL ONE (14:44)
[2024-01-07] MEDS: DEXAMETHASONE SOD PHOSPHATE 10 MG/1 ML VIAL IM ONE (14:50)
== END 2024-01-07 16:35 | disposition home or self-care (01) ==
LOC: FER 14:22
PROC: 3E023GC Introduction of Other Therapeutic Substance into Muscle, Percutaneous Approach (ICD-10-PCS; principal; 2024-01-07)
DX: J02.9 Acute pharyngitis, unspecified (principal)
CPT/HCPCS: 87651; 99284-25; J1100

== ENCOUNTER 2024-06-21 19:10 | Emergency (ER) | payer OTHER ==
[2024-06-21 19:16] VITALS: BP 130/95; PULSE 87; RESP 18; TEMP 98.6; BMI 35.2
[2024-06-21 20:06] LABS: THROAT:GRP A STREP NOT DETECTED (NOTDETECTED)
== END 2024-06-21 21:16 | disposition home or self-care (01) ==
LOC: JERFT 19:10 → JER 19:10
DX: J01.10 Acute frontal sinusitis, unspecified (principal); R50.9 Fever, unspecified; R05.9 Cough, unspecified; R09.81 Nasal congestion; R07.9 Chest pain, unspecified
CPT/HCPCS: 0241U-QW; 71046-TC-FY; 87651; 93005; 93010; 99285-25